=== PATIENT | male | born 1955 | race Caucasian/White ===

== ENCOUNTER 2023-11-21 14:03 | Inpatient (IN) | payer MEDICARE, OTHER, SELFPAY ==
[2023-11-21] VITALS (12 sets, daily range): BP systolic 84–122; BP diastolic 31–64; PULSE 108–127; RESP 11–30; TEMP 36.3–37.2; O2SAT 95–99; BMI 29.0; BMI 29.1
--- NOTE | 2023-11-21 14:14 | ECG_ITS ---
Test Reason : HYPERGLYCEMIA Blood Pressure : / mmHG Vent. Rate : 118 BPM Atrial Rate : 118 BPM P-R Int : 168 ms QRS Dur : 088 ms QT Int : 338 ms P-R-T Axes : 070 060 032 degrees QTc Int : 473 ms Sinus tachycardia Possible Left atrial enlargement Borderline ECG No previous ECGs available Referred By: Archie Heck Electronically Signed By:STANLEY KRAUS MD
--- NOTE | 2023-11-21 14:15 | ED_ITS ---
HPI - General Adult General Chief complaint: Nausea/Vomiting/Diarrhea Stated complaint: High blood sugar/Vomiting Time Seen by Provider: 11/21/23 16:09 Related Data Allergies Allergy/AdvReac Type Severity Reaction Status Date / Time No Known Allergies Allergy Verified 11/21/23 14:13 [facility] Social History Social History Household Members: Spouse Housing: House Do you presently have visiting nurse or other home services: No Patient Tobacco Use Status: Current someday Tobacco user Tobacco use type: Cigar Smoked in Last 30 Days: Yes e-Cigarette/Vaping Use: Never Used Patient Interested in Nicotine Replacement: No Patient Given Instructions on How to Stop Smoking: No Second Hand Smoke Exposure: No Use of substances other than those prescribed or required for medical reasons: No Currently Displaying Signs/Symptoms of Drug Intoxication Withdrawal: No Have you been hit, kicked, punched, or otherwise hurt by someone within the past year? If so, by whom?: No Do you feel safe in your current relationship?: Yes Is there a partner from a previous relationship who is making you feel unsafe now?: No Are you made to feel afraid or neglected: No [facility] Practices: [employer] Advance Directives: No Advance Directives Information Provided: No Do you have thoughts of harming others: None Do you have a plan to hurt others: No Plan Recently lost weight without trying: No Nutrition Risks: No Nutritional Risk Poor oral hygiene: No Physical Exam ED Vital Signs: Vital Signs - 24 hr 11/21/23 14:11 11/21/23 15:50 11/21/23 15:57 Temperature 98 F 97.9 F Pulse Rate 120 H 116 H 113 H Respiratory Rate 19 28 H 26 H Blood Pressure 98/50 L 84/48 L 94/53 L Pulse Oximetry 98 Oxygen Delivery Method Room Air 11/21/23 16:20 11/21/23 16:41 11/21/23 17:09 Temperature 97.7 F Pulse Rate 112 H 118 H Respiratory Rate 30 H 22 H Blood Pressure 98/31 L 108/37 L Pulse Oximetry 99 99 Oxygen Delivery Method Room Air Room Air 11/21/23 17:32 11/21/23 18:00 Temperature Pulse Rate 127 H 122 H Respiratory Rate 24 H 18 Blood Pressure 122/64 108/61 Pulse Oximetry 99 97 Oxygen Delivery Method Room Air Room Air BMI result Body Mass Index 29.0 Course Course Course Narrative: RME: 68 yold male preesnts to the ED for hyperglycemia and vomiting since last night. Patient states also some abdominal pain. Patient states no fever or chills. Patient has insulin pump with constant measurement of high medial gluteal aches over 500. Labs ordered. Nurse droop with a speak to charge nurse Jess to bring patient in for possible DKA Medications Administered Generic Name Dose Route Start Last Admin Trade Name Freq PRN Reason Stop Dose Admin Heparin Sodium (Porcine) 5,000 unit 11/21/23 20:00 11/21/23 20:08 Heparin Sodium,Porcine 5,000 Unit/Ml Vial SUBCUT 5,000 unit Q8H PASCUAL Administration Insulin Human Regular 100 unit in 100 mls @ 6 mls/hr 11/21/23 16:15 11/21/23 22:03 Myxredlin IVCONT 5 unit/hr .[id number] PASCUAL 5 mls/hr Titration Protocol 6 UNIT/HR Sodium Chloride 1,000 mls @ 150 mls/hr 11/21/23 20:15 11/21/23 21:03 Sodium Chloride 0.45 % IVCONT 150 mls/hr .[id number] PASCUAL Administration Discontinued Medications Generic Name Dose Route Start Last Admin Trade Name Freq PRN Reason Stop Dose Admin Sodium Chloride 1,000 mls @ 999 mls/hr 11/21/23 14:16 11/21/23 17:09 Ns IV 11/21/23 15:16 Infused .Q1H1M STA Infusion Sodium Chloride 1,000 mls @ 999 mls/hr 11/21/23 14:16 11/21/23 17:09 Ns IV 11/21/23 15:16 Infused .Q1H1M STA Infusion Sodium Chloride 1,000 mls @ 999 mls/hr 11/21/23 14:16 11/21/23 17:09 Ns IV 11/21/23 15:16 Infused .Q1H1M STA Infusion Ceftriaxone Sodium 1 gm/ 50 mls @ 100 mls/hr 11/21/23 16:53 11/21/23 17:46 Sodium Chloride IV 11/21/23 17:22 Infused ONCE ONE Infusion Lactated Ringer's 500 mls @ 999 mls/hr 11/21/23 18:36 11/21/23 19:23 Lr IVCONT 11/21/23 19:06 Infused .Q31M STA Infusion Insulin Human Regular 10 unit 11/21/23 16:03 11/21/23 16:18 Insulin Regular, Human 100 Unit/Ml 3 Ml Vial IVPUSH 11/21/23 16:04 Not Given ONCE ONE Insulin Human Regular 10 unit 11/21/23 16:11 11/21/23 16:28 Insulin Regular, Human 100 Unit/Ml 3 Ml Vial IVPUSH 11/21/23 16:12 10 unit ONCE ONE Administration Ondansetron HCl 4 mg 11/21/23 17:33 11/21/23 17:39 Ondansetron Hcl 4 Mg/2 Ml Vial IVPUSH 11/21/23 17:34 4 mg ONCE ONE Administration Medical Decision Making Lab Data 11/21/23 21:47 11/21/23 21:47 Labs: Lab Results 11/21/23 11/21/23 11/21/23 Range/Units 14:48 15:32 15:42 WBC 25.8 H (4.8-10.8) X10*3/uL RBC 5.10 (4.60-5.80) X10*6/uL Hgb 16.4 (14.0-18.0) g/dl Hct 51.0 (42.0-52.0) % MCV 100.0 H (80.0-98.0) fL MCH 32.2 (27.0-33.0) pg MCHC 32.2 (31.0-36.0) g/dl RDW 12.9 (11.0-16.0) % Plt Count 326 (160-400) X10*3/uL MPV 10.6 (9.4-12.4) fL Immature Gran % (Auto) 1.3 H (0.0-0.4) % Neut % (Auto) 85.6 H (45-73) % Lymph % (Auto) 6.3 L (20-40) % [place] % (Auto) 6.5 (2-11) % Eos % (Auto) 0.0 (0-4) % Baso % (Auto) 0.3 (0-2) % Lymph # (Auto) 1.6 (1.2-4.9) X10*3/uL [place] # (Auto) 1.7 H (0.1-1.2) X10*3/uL Eos # (Auto) 0.0 (0.0-0.4) X10*3/uL Baso # (Auto) 0.1 (0.0-0.2) X10*3/uL Abs Immat Gran (auto) 0.33 H (0.00-0.03) X10*3/uL Absolute Neuts (auto) 22.1 H (2.0-8.3) x10*3/uL Absolute Nucleated RBC 0.000 (0.0-0.012) X10*3/uL Nucleated RBC % (auto) 0.0 (0.0-0.2) /100WBC Smear Tech's Comments VERIFIED VBG pH (7.32-7.43) VBG pCO2 mmHg VBG pO2 mmHg VBG HCO3 (22-26) mmol/L VBG O2 Saturation % VBG Base Excess mmol/L Sodium 138 (135-145) mmol/L Potassium 5.8 H (3.3-5.1) mmol/L Chloride 95 L (96-108) mmol/L Carbon Dioxide 6 L* (22-29) mmol/L Anion Gap 43 H (12-20) BUN 39 H (9-16) mg/dL Creatinine 2.64 H (0.5-1.4) mg/dL Estim Creat Clear Calc 28.5 Estimated GFR 24 POC Glucose > 600 H* (60-115) mg/dL Random Glucose 801 H* (60-115) mg/dL Lactic Acid 10.4 H* (0.5-2.0) mmol/L Lactic Acid F/U @ 2Hr (0.5-2.0) mmol/L Calcium 10.3 H (8.4-10.2) mg/dL Total Bilirubin 0.5 (0.0-1.0) mg/dL AST 52 H (5-37) U/L ALT 81 H (0-40) U/L Alkaline Phosphatase 93 (39-117) U/L Troponin I High Sens 20.7 (<3.5-35.0) ng/L Total Protein 8.3 H (6.5-8.0) g/dL Albumin 4.7 (3.5-5.0) g/dL Beta-Hydroxybutyrate 10.03 H (0.02-0.27) mmol/L Urine Color Urine Appearance Urine pH (5.0-9.0) Ur Specific [place] (1.005-1.025) Urine Protein (Neg-Trace) mg/dL Urine Glucose (UA) (Negative) mg/dL Urine Ketones (Negative) mg/dL Urine Blood (Negative) Urine Nitrite (Negative) Ur Leukocyte Esterase (Negative) Urine RBC (0-2) /HPF Urine WBC (0-5) /HPF Ur Squamous Epith Cells (0-2) /HPF Urine Bacteria (None Seen) Hyaline Casts (0-2) /LPF Influenza Type A (PCR) NEGATIVE (Negative) Influenza Type B (PCR) NEGATIVE (Negative) RSV RNA Qual (PCR) NEGATIVE (Negative) SARS-CoV-2 RNA (RT-PCR) NEGATIVE (Negative) 11/21/23 11/21/23 11/21/23 Range/Units 16:28 17:05 17:19 WBC (4.8-10.8) X10*3/uL RBC (4.60-5.80) X10*6/uL Hgb (14.0-18.0) g/dl Hct (42.0-52.0) % MCV (80.0-98.0) fL MCH (27.0-33.0) pg MCHC (31.0-36.0) g/dl RDW (11.0-16.0) % Plt Count (160-400) X10*3/uL MPV (9.4-12.4) fL Immature Gran % (Auto) (0.0-0.4) % Neut % (Auto) (45-73) % Lymph % (Auto) (20-40) % [place] % (Auto) (2-11) % Eos % (Auto) (0-4) % Baso % (Auto) (0-2) % Lymph # (Auto) (1.2-4.9) X10*3/uL [place] # (Auto) (0.1-1.2) X10*3/uL Eos # (Auto) (0.0-0.4) X10*3/uL Baso # (Auto) (0.0-0.2) X10*3/uL Abs Immat Gran (auto) (0.00-0.03) X10*3/uL Absolute Neuts (auto) (2.0-8.3) x10*3/uL Absolute Nucleated RBC (0.0-0.012) X10*3/uL Nucleated RBC % (auto) (0.0-0.2) /100WBC Smear Tech's Comments VBG pH 7.01 L* (7.32-7.43) VBG pCO2 27 mmHg VBG pO2 53 mmHg VBG HCO3 7 L (22-26) mmol/L VBG O2 Saturation 70.0 % VBG Base Excess -22.6 mmol/L Sodium (135-145) mmol/L Potassium (3.3-5.1) mmol/L Chloride (96-108) mmol/L Carbon Dioxide (22-29) mmol/L Anion Gap (12-20) BUN (9-16) mg/dL Creatinine (0.5-1.4) mg/dL Estim Creat Clear Calc Estimated GFR POC Glucose > 600 H* 270 H (60-115) mg/dL Random Glucose (60-115) mg/dL Lactic Acid (0.5-2.0) mmol/L Lactic Acid F/U @ 2Hr (0.5-2.0) mmol/L Calcium (8.4-10.2) mg/dL Total Bilirubin (0.0-1.0) mg/dL AST (5-37) U/L ALT (0-40) U/L Alkaline Phosphatase (39-117) U/L Troponin I High Sens (<3.5-35.0) ng/L Total Protein (6.5-8.0) g/dL Albumin (3.5-5.0) g/dL Beta-Hydroxybutyrate (0.02-0.27) mmol/L Urine Color Yellow Urine Appearance Clear Urine pH 5.0 (5.0-9.0) Ur Specific [place] 1.025 (1.005-1.025) Urine Protein Trace (Neg-Trace) mg/dL Urine Glucose (UA) >=1000 H (Negative) mg/dL Urine Ketones 40 (Negative) mg/dL Urine Blood Negative (Negative) Urine Nitrite Negative (Negative) Ur Leukocyte Esterase Negative (Negative) Urine RBC 0-2 (0-2) /HPF Urine WBC 0-5 (0-5) /HPF Ur Squamous Epith Cells 0-2 (0-2) /HPF Urine Bacteria None Seen (None Seen) Hyaline Casts 3-5 (0-2) /LPF Influenza Type A (PCR) (Negative) Influenza Type B (PCR) (Negative) RSV RNA Qual (PCR) (Negative) SARS-CoV-2 RNA (RT-PCR) (Negative) 11/21/23 11/21/23 11/21/23 Range/Units 18:08 18:11 18:13 WBC (4.8-10.8) X10*3/uL RBC (4.60-5.80) X10*6/uL Hgb (14.0-18.0) g/dl Hct (42.0-52.0) % MCV (80.0-98.0) fL MCH (27.0-33.0) pg MCHC (31.0-36.0) g/dl RDW (11.0-16.0) % Plt Count (160-400) X10*3/uL MPV (9.4-12.4) fL Immature Gran % (Auto) (0.0-0.4) % Neut % (Auto) (45-73) % Lymph % (Auto) (20-40) % [place] % (Auto) (2-11) % Eos % (Auto) (0-4) % Baso % (Auto) (0-2) % Lymph # (Auto) (1.2-4.9) X10*3/uL [place] # (Auto) (0.1-1.2) X10*3/uL Eos # (Auto) (0.0-0.4) X10*3/uL Baso # (Auto) (0.0-0.2) X10*3/uL Abs Immat Gran (auto) (0.00-0.03) X10*3/uL Absolute Neuts (auto) (2.0-8.3) x10*3/uL Absolute Nucleated RBC (0.0-0.012) X10*3/uL Nucleated RBC % (auto) (0.0-0.2) /100WBC Smear Tech's Comments VBG pH (7.32-7.43) VBG pCO2 mmHg VBG pO2 mmHg VBG HCO3 (22-26) mmol/L VBG O2 Saturation % VBG Base Excess mmol/L Sodium 145 (135-145) mmol/L Potassium 5.1 (3.3-5.1) mmol/L Chloride 107 (96-108) mmol/L Carbon Dioxide 11 L (22-29) mmol/L Anion Gap 32 H (12-20) BUN 38 H (9-16) mg/dL Creatinine 2.37 H (0.5-1.4) mg/dL Estim Creat Clear Calc 31.7 Estimated GFR 28 POC Glucose 522 H* 550 H* (60-115) mg/dL Random Glucose 621 H* (60-115) mg/dL Lactic Acid (0.5-2.0) mmol/L Lactic Acid F/U @ 2Hr 5.7 H* (0.5-2.0) mmol/L Calcium 8.7 D (8.4-10.2) mg/dL Total Bilirubin (0.0-1.0) mg/dL AST (5-37) U/L ALT (0-40) U/L Alkaline Phosphatase (39-117) U/L Troponin I High Sens (<3.5-35.0) ng/L Total Protein (6.5-8.0) g/dL Albumin (3.5-5.0) g/dL Beta-Hydroxybutyrate (0.02-0.27) mmol/L Urine Color Urine Appearance Urine pH (5.0-9.0) Ur Specific [place] (1.005-1.025) Urine Protein (Neg-Trace) mg/dL Urine Glucose (UA) (Negative) mg/dL Urine Ketones (Negative) mg/dL Urine Blood (Negative) Urine Nitrite (Negative) Ur Leukocyte Esterase (Negative) Urine RBC (0-2) /HPF Urine WBC (0-5) /HPF Ur Squamous Epith Cells (0-2) /HPF Urine Bacteria (None Seen) Hyaline Casts (0-2) /LPF Influenza Type A (PCR) (Negative) Influenza Type B (PCR) (Negative) RSV RNA Qual (PCR) (Negative) SARS-CoV-2 RNA (RT-PCR) (Negative) 11/21/23 11/21/23 Range/Units 18:20 19:07 WBC (4.8-10.8) X10*3/uL RBC (4.60-5.80) X10*6/uL Hgb (14.0-18.0) g/dl Hct (42.0-52.0) % MCV (80.0-98.0) fL MCH (27.0-33.0) pg MCHC (31.0-36.0) g/dl RDW (11.0-16.0) % Plt Count (160-400) X10*3/uL MPV (9.4-12.4) fL Immature Gran % (Auto) (0.0-0.4) % Neut % (Auto) (45-73) % Lymph % (Auto) (20-40) % [place] % (Auto) (2-11) % Eos % (Auto) (0-4) % Baso % (Auto) (0-2) % Lymph # (Auto) (1.2-4.9) X10*3/uL [place] # (Auto) (0.1-1.2) X10*3/uL Eos # (Auto) (0.0-0.4) X10*3/uL Baso # (Auto) (0.0-0.2) X10*3/uL Abs Immat Gran (auto) (0.00-0.03) X10*3/uL Absolute Neuts (auto) (2.0-8.3) x10*3/uL Absolute Nucleated RBC (0.0-0.012) X10*3/uL Nucleated RBC % (auto) (0.0-0.2) /100WBC Smear Tech's Comments VBG pH 7.13 L* (7.32-7.43) VBG pCO2 25 mmHg VBG pO2 62 mmHg VBG HCO3 8 L (22-26) mmol/L VBG O2 Saturation 86.0 % VBG Base Excess -18.7 mmol/L Sodium (135-145) mmol/L Potassium (3.3-5.1) mmol/L Chloride (96-108) mmol/L Carbon Dioxide (22-29) mmol/L Anion Gap (12-20) BUN (9-16) mg/dL Creatinine (0.5-1.4) mg/dL Estim Creat Clear Calc Estimated GFR POC Glucose 484 H* (60-115) mg/dL Random Glucose (60-115) mg/dL Lactic Acid (0.5-2.0) mmol/L Lactic Acid F/U @ 2Hr (0.5-2.0) mmol/L Calcium (8.4-10.2) mg/dL Total Bilirubin (0.0-1.0) mg/dL AST (5-37) U/L ALT (0-40) U/L Alkaline Phosphatase (39-117) U/L Troponin I High Sens (<3.5-35.0) ng/L Total Protein (6.5-8.0) g/dL Albumin (3.5-5.0) g/dL Beta-Hydroxybutyrate (0.02-0.27) mmol/L Urine Color Urine Appearance Urine pH (5.0-9.0) Ur Specific [place] (1.005-1.025) Urine Protein (Neg-Trace) mg/dL Urine Glucose (UA) (Negative) mg/dL Urine Ketones (Negative) mg/dL Urine Blood (Negative) Urine Nitrite (Negative) Ur Leukocyte Esterase (Negative) Urine RBC (0-2) /HPF Urine WBC (0-5) /HPF Ur Squamous Epith Cells (0-2) /HPF Urine Bacteria (None Seen) Hyaline Casts (0-2) /LPF Influenza Type A (PCR) (Negative) Influenza Type B (PCR) (Negative) RSV RNA Qual (PCR) (Negative) SARS-CoV-2 RNA (RT-PCR) (Negative) Discharge Plan Discharge Clinical Impression: DKA (diabetic ketoacidosis) Patient Disposition: Admitted As Inpatient Interventions: Admission Worksheet (ED) Last Done: 11/21/23 21:00 Discharge Date/Time: 11/21/23 21:13
[2023-11-21 14:55] LABS: Basophils Absolute Auto 0.1 X10*3/uL (0.0-0.2); Basophils Percent Auto 0.3 % (0-2); Hemoglobin 16.4 g/dl (14.0-18.0); Imm Gran Abs Auto 0.33 X10*3/uL (0.00-0.03); Imm Gran Pct Auto 1.3 % (0.0-0.4); Lymphocytes Absolute Auto 1.6 X10*3/uL (1.2-4.9); Lymphocytes Percent Auto 6.3 % (20-40); MANUAL DIFF FLAG SCAN; Mean Corpuscular HGB Conc 32.2 g/dl (31.0-36.0); Mean Corpuscular Hemoglobin 32.2 pg (27.0-33.0); Mean Platelet Volume 10.6 fL (9.4-12.4); Monocytes Absolute Auto 1.7 X10*3/uL (0.1-1.2); Monocytes Percent Auto 6.5 % (2-11); Neutrophils Absolute Auto 22.1 x10*3/uL (2.0-8.3); Neutrophils Percent Auto 85.6 % (45-73); Platelet Count 326 X10*3/uL (160-400); Red Cell Distribution Width 12.9 % (11.0-16.0); SCAN SMEAR FLAG 1; White Blood Count 25.8 X10*3/uL (4.8-10.8)
[2023-11-21 15:16] LABS: SLIDE REVIEW VERIFIED
[2023-11-21 15:23] LABS: Troponin-I High Sensitivity 20.7 ng/L (<3.5-35.0)
[2023-11-21 15:36] LABS: Influenza A PCR NEGATIVE (Negative); Influenza B PCR NEGATIVE (Negative); Resp Syncy Virus RNA Qual PCR NEGATIVE (Negative); SARS COV2 PCR INHOUSE NEGATIVE (Negative)
[2023-11-21 15:39] LABS: Glucose, Whole Blood > 600 mg/dL (60-115)
--- NOTE | 2023-11-21 15:40 | PC.NURSE ---
md mendes notified upon pt entering room and taking VS that py hypotensive/tachycardic with elevated wbc. rn had legal secretary receptionist call sepsis alert. no abx being ordered at this time. 2 set BCs drawn
[2023-11-21] MEDS: 0.9 % Sodium Chloride 1,000 ML 999 ML IV ×3 (15:50→15:56)
--- NOTE | 2023-11-21 15:50 | PC.NURSE ---
md mendes notified poc taken x2 as both times read high. iv fluids hung. no new orders at this time
[2023-11-21 16:02] LABS: Alanine Aminotransferase 81 U/L (0-40); Albumin Level 4.7 g/dL (3.5-5.0); Alkaline Phosphatase 93 U/L (39-117); Anion Gap 43 (12-20); Aspartate Amino Transferase 52 U/L (5-37); Bilirubin Total 0.5 mg/dL (0.0-1.0); Blood Urea Nitrogen 39 mg/dL (9-16); Calcium 10.3 mg/dL (8.4-10.2); Carbon Dioxide 6 mmol/L (22-29); Chloride 95 mmol/L (96-108); Creatinine Clr Calc Pharmacy 28.5; Estimated Glomerular Filt Rate 24; Glucose Random 801 mg/dL (60-115); Potassium 5.8 mmol/L (3.3-5.1); Sodium 138 mmol/L (135-145); Total Protein 8.3 g/dL (6.5-8.0)
--- NOTE | 2023-11-21 16:07 | PC.NURSE ---
called RT to notify pt need ABG. christianne valera at bedside ordering not to give iv insulin at this time due to receiving insulin via internal insulin pump.
--- NOTE | 2023-11-21 16:09 | ED_ITS ---
HPI - General Adult General Chief complaint: Nausea/Vomiting/Diarrhea Stated complaint: High blood sugar/Vomiting Time Seen by Provider: 11/21/23 16:09 Source: patient Mode of arrival: ambulatory Limitations: no limitations History of Present Illness HPI narrative: Patient is type 1 diabetic on insulin pump for last 3 years history of DKA before insulin pump started and been doing well since yesterday evening patient started vomiting blood sugar kept increasing from 200 today in a.m. patient changed the insulin pump site thinking maybe because of insulin pump blood sugar is getting higher patient give boluses of 45 units earlier today using his insulin pump but blood sugar continued to be high started vomiting with diffuse abdominal pain vomited multiple times on arrival patient's blood sugar was more than 600 no fever no chills no cough no chest pain complaining of pain all over and right flank Related Data Allergies Allergy/AdvReac Type Severity Reaction Status Date / Time No Known Allergies Allergy Verified 11/21/23 14:13 Review of Systems 2 Review of Systems: Yes all other systems are reviewed and are negative [facility] Past Medical History Medical History Type 1 diabetes Social History Social History Household Members: Spouse Housing: House Do you presently have visiting nurse or other home services: No Patient Tobacco Use Status: Current someday Tobacco user Tobacco use type: Cigar Smoked in Last 30 Days: Yes e-Cigarette/Vaping Use: Never Used Patient Interested in Nicotine Replacement: No Patient Given Instructions on How to Stop Smoking: No Second Hand Smoke Exposure: No Use of substances other than those prescribed or required for medical reasons: No Currently Displaying Signs/Symptoms of Drug Intoxication Withdrawal: No Have you been hit, kicked, punched, or otherwise hurt by someone within the past year? If so, by whom?: No Do you feel safe in your current relationship?: Yes Is there a partner from a previous relationship who is making you feel unsafe now?: No Are you made to feel afraid or neglected: No [employer] Healthcare Practices: Syn[employer] Advance Directives: No Advance Directives Information Provided: No Do you have thoughts of harming others: None Do you have a plan to hurt others: No Plan Recently lost weight without trying: No Nutrition Risks: No Nutritional Risk Poor oral hygiene: No Physical Exam ED Vital Signs: Vital Signs - 24 hr 11/21/23 14:11 11/21/23 15:50 11/21/23 15:57 Temperature 98 F 97.9 F Pulse Rate 120 H 116 H 113 H Respiratory Rate 19 28 H 26 H Blood Pressure 98/50 L 84/48 L 94/53 L Pulse Oximetry 98 Oxygen Delivery Method Room Air 11/21/23 16:20 11/21/23 16:41 11/21/23 17:09 Temperature 97.7 F Pulse Rate 112 H 118 H Respiratory Rate 30 H 22 H Blood Pressure 98/31 L 108/37 L Pulse Oximetry 99 99 Oxygen Delivery Method Room Air Room Air 11/21/23 17:32 11/21/23 18:00 Temperature Pulse Rate 127 H 122 H Respiratory Rate 24 H 18 Blood Pressure 122/64 108/61 Pulse Oximetry 99 97 Oxygen Delivery Method Room Air Room Air BMI result Body Mass Index 29.0 Appearance: Alert. Oriented X3. No acute distress. Eyes: PERRLA, No Nystagmus ENT: Pharynx normal. Oral Mucosa very dry Neck: Normal inspection. Neck supple. CVS: Normal heart rate and rhythm. Pulses normal. Respiratory: No respiratory distress. Equal air entry bilateral, no wheezing/rales/rhonchi Abdomen: Soft and nontender. Bowel sounds are present, no mass palpable, no CVA tenderness Skin: Skin warm and dry. Normal skin color. Normal skin turgor. Extremities: No lower extremity edema. No calf tenderness Neuro: Oriented X 3. No motor deficit. No sensory deficit.No cerebellar signs , cranial nerves II-XII intact Medications Administered Generic Name Dose Route Start Last Admin Trade Name Donatoq PRN Reason Stop Dose Admin Heparin Sodium (Porcine) 5,000 unit 11/21/23 20:00 11/21/23 20:08 Heparin Sodium,Porcine 5,000 Unit/Ml Vial SUBCUT 5,000 unit Q8H PASCUAL Administration Insulin Human Regular 100 unit in 100 mls @ 6 mls/hr 11/21/23 16:15 11/21/23 22:03 Myxredlin IVCONT 5 unit/hr .[id number] PASCUAL 5 mls/hr Titration Protocol 6 UNIT/HR Dextrose/Lactated Ringer's 1,000 mls @ 150 mls/hr 11/22/23 01:30 11/22/23 01:35 D5lr IVCONT 150 mls/hr .Q6H40M PASCUAL Administration Discontinued Medications Generic Name Dose Route Start Last Admin Trade Name Donatoq PRN Reason Stop Dose Admin Sodium Chloride 1,000 mls @ 999 mls/hr 11/21/23 14:16 11/21/23 17:09 Ns IV 11/21/23 15:16 Infused .Q1H1M STA Infusion Sodium Chloride 1,000 mls @ 999 mls/hr 11/21/23 14:16 11/21/23 17:09 Ns IV 11/21/23 15:16 Infused .Q1H1M STA Infusion Sodium Chloride 1,000 mls @ 999 mls/hr 11/21/23 14:16 11/21/23 17:09 Ns IV 11/21/23 15:16 Infused .Q1H1M STA Infusion Ceftriaxone Sodium 1 gm/ 50 mls @ 100 mls/hr 11/21/23 16:53 11/21/23 17:46 Sodium Chloride IV 11/21/23 17:22 Infused ONCE ONE Infusion Lactated Ringer's 500 mls @ 999 mls/hr 11/21/23 18:36 11/21/23 19:23 Lr IVCONT 11/21/23 19:06 Infused .Q31M STA Infusion Sodium Chloride 1,000 mls @ 150 mls/hr 11/21/23 20:15 11/21/23 23:15 Sodium Chloride 0.45 % IVCONT Infused .Q6H40M PASCUAL Infusion Lactated Ringer's 1,000 mls @ 150 mls/hr 11/21/23 23:15 11/22/23 01:15 Lr IVCONT Infused .Q6H40M PASCUAL Infusion Insulin Human Regular 10 unit 11/21/23 16:03 11/21/23 16:18 Insulin Regular, Human 100 Unit/Ml 3 Ml Vial IVPUSH 11/21/23 16:04 Not Given ONCE ONE Insulin Human Regular 10 unit 11/21/23 16:11 11/21/23 16:28 Insulin Regular, Human 100 Unit/Ml 3 Ml Vial IVPUSH 11/21/23 16:12 10 unit ONCE ONE Administration Ondansetron HCl 4 mg 11/21/23 17:33 11/21/23 17:39 Ondansetron Hcl 4 Mg/2 Ml Vial IVPUSH 11/21/23 17:34 4 mg ONCE ONE Administration Medical Decision Making Medical Decision Making [facility] Narrative: Patient is type 1 diabetes with DKA with metabolic acidosis. Has leukocytosis secondary to leukemoid reaction no source of infection also lactic acid doses is part of diabetes ketoacidosis patient was given IV fluids started on insulin drip blood sugar improved and anion gap is closing foot still elevated on arrival patient bicarb level was 6 at 21:47 increased to 16 patient been drinking p.o. fluids in the ER anion gap on arrival was 43 after IV fluids decreased to 32 and at time of transfer to ICU was 22. Case discussed with Dr. Snyder human resources operations director will take the patient to ICU Patient not in bacterial sepsis elevated WBC count is secondary to ketoacidosis and elevated lactic acid level is also from hyperglycemia and ketoacidosis although blood cultures were done prophylactic Rocephin was given Differential Diagnosis Differential Diagnoses: The differential diagnosis associated with the presentation includes Diabetic ketoacidosis/dehydration Consult Healthcare Provider Management of the patient was discussed with: Horticulture/[employer]icult[employer] Teacher [employer] Vice President Lab Data [facility] Lab Attestation statement: I reviewed the patient's lab results. 11/21/23 21:47 11/21/23 21:47 Labs: Lab Results 11/21/23 11/21/23 11/21/23 Range/Units 14:48 15:32 15:42 WBC 25.8 H (4.8-10.8) X10*3/uL RBC 5.10 (4.60-5.80) X10*6/uL Hgb 16.4 (14.0-18.0) g/dl Hct 51.0 (42.0-52.0) % MCV 100.0 H (80.0-98.0) fL MCH 32.2 (27.0-33.0) pg MCHC 32.2 (31.0-36.0) g/dl RDW 12.9 (11.0-16.0) % Plt Count 326 (160-400) X10*3/uL MPV 10.6 (9.4-12.4) fL Immature Gran % (Auto) 1.3 H (0.0-0.4) % Neut % (Auto) 85.6 H (45-73) % Lymph % (Auto) 6.3 L (20-40) % Crosby % (Auto) 6.5 (2-11) % Eos % (Auto) 0.0 (0-4) % Baso % (Auto) 0.3 (0-2) % Lymph # (Auto) 1.6 (1.2-4.9) X10*3/uL Crosby # (Auto) 1.7 H (0.1-1.2) X10*3/uL Eos # (Auto) 0.0 (0.0-0.4) X10*3/uL Baso # (Auto) 0.1 (0.0-0.2) X10*3/uL Abs Immat Gran (auto) 0.33 H (0.00-0.03) X10*3/uL Absolute Neuts (auto) 22.1 H (2.0-8.3) x10*3/uL Absolute Nucleated RBC 0.000 (0.0-0.012) X10*3/uL Nucleated RBC % (auto) 0.0 (0.0-0.2) /100WBC Smear Tech's Comments VERIFIED VBG pH (7.32-7.43) VBG pCO2 mmHg VBG pO2 mmHg VBG HCO3 (22-26) mmol/L VBG O2 Saturation % VBG Base Excess mmol/L Sodium 138 (135-145) mmol/L Potassium 5.8 H (3.3-5.1) mmol/L Chloride 95 L (96-108) mmol/L Carbon Dioxide 6 L* (22-29) mmol/L Anion Gap 43 H (12-20) BUN 39 H (9-16) mg/dL Creatinine 2.64 H (0.5-1.4) mg/dL Estim Creat Clear Calc 28.5 Estimated GFR 24 POC Glucose > 600 H* (60-115) mg/dL Random Glucose 801 H* (60-115) mg/dL Lactic Acid 10.4 H* (0.5-2.0) mmol/L Lactic Acid F/U @ 2Hr (0.5-2.0) mmol/L Calcium 10.3 H (8.4-10.2) mg/dL Total Bilirubin 0.5 (0.0-1.0) mg/dL AST 52 H (5-37) U/L ALT 81 H (0-40) U/L Alkaline Phosphatase 93 (39-117) U/L Troponin I High Sens 20.7 (<3.5-35.0) ng/L Total Protein 8.3 H (6.5-8.0) g/dL Albumin 4.7 (3.5-5.0) g/dL Beta-Hydroxybutyrate 10.03 H (0.02-0.27) mmol/L Urine Color Urine Appearance Urine pH (5.0-9.0) Ur Specific [place] (1.005-1.025) Urine Protein (Neg-Trace) mg/dL Urine Glucose (UA) (Negative) mg/dL Urine Ketones (Negative) mg/dL Urine Blood (Negative) Urine Nitrite (Negative) Ur Leukocyte Esterase (Negative) Urine RBC (0-2) /HPF Urine WBC (0-5) /HPF Ur Squamous Epith Cells (0-2) /HPF Urine Bacteria (None Seen) Hyaline Casts (0-2) /LPF Influenza Type A (PCR) NEGATIVE (Negative) Influenza Type B (PCR) NEGATIVE (Negative) RSV RNA Qual (PCR) NEGATIVE (Negative) SARS-CoV-2 RNA (RT-PCR) NEGATIVE (Negative) 11/21/23 11/21/23 11/21/23 Range/Units 16:28 17:05 17:19 WBC (4.8-10.8) X10*3/uL RBC (4.60-5.80) X10*6/uL Hgb (14.0-18.0) g/dl Hct (42.0-52.0) % MCV (80.0-98.0) fL MCH (27.0-33.0) pg MCHC (31.0-36.0) g/dl RDW (11.0-16.0) % Plt Count (160-400) X10*3/uL MPV (9.4-12.4) fL Immature Gran % (Auto) (0.0-0.4) % Neut % (Auto) (45-73) % Lymph % (Auto) (20-40) % Crosby % (Auto) (2-11) % Eos % (Auto) (0-4) % Baso % (Auto) (0-2) % Lymph # (Auto) (1.2-4.9) X10*3/uL Crosby # (Auto) (0.1-1.2) X10*3/uL Eos # (Auto) (0.0-0.4) X10*3/uL Baso # (Auto) (0.0-0.2) X10*3/uL Abs Immat Gran (auto) (0.00-0.03) X10*3/uL Absolute Neuts (auto) (2.0-8.3) x10*3/uL Absolute Nucleated RBC (0.0-0.012) X10*3/uL Nucleated RBC % (auto) (0.0-0.2) /100WBC Smear Tech's Comments VBG pH 7.01 L* (7.32-7.43) VBG pCO2 27 mmHg VBG pO2 53 mmHg VBG HCO3 7 L (22-26) mmol/L VBG O2 Saturation 70.0 % VBG Base Excess -22.6 mmol/L Sodium (135-145) mmol/L Potassium (3.3-5.1) mmol/L Chloride (96-108) mmol/L Carbon Dioxide (22-29) mmol/L Anion Gap (12-20) BUN (9-16) mg/dL Creatinine (0.5-1.4) mg/dL Estim Creat Clear Calc Estimated GFR POC Glucose > 600 H* 270 H (60-115) mg/dL Random Glucose (60-115) mg/dL Lactic Acid (0.5-2.0) mmol/L Lactic Acid F/U @ 2Hr (0.5-2.0) mmol/L Calcium (8.4-10.2) mg/dL Total Bilirubin (0.0-1.0) mg/dL AST (5-37) U/L ALT (0-40) U/L Alkaline Phosphatase (39-117) U/L Troponin I High Sens (<3.5-35.0) ng/L Total Protein (6.5-8.0) g/dL Albumin (3.5-5.0) g/dL Beta-Hydroxybutyrate (0.02-0.27) mmol/L Urine Color Yellow Urine Appearance Clear Urine pH 5.0 (5.0-9.0) Ur Specific [place] 1.025 (1.005-1.025) Urine Protein Trace (Neg-Trace) mg/dL Urine Glucose (UA) >=1000 H (Negative) mg/dL Urine Ketones 40 (Negative) mg/dL Urine Blood Negative (Negative) Urine Nitrite Negative (Negative) Ur Leukocyte Esterase Negative (Negative) Urine RBC 0-2 (0-2) /HPF Urine WBC 0-5 (0-5) /HPF Ur Squamous Epith Cells 0-2 (0-2) /HPF Urine Bacteria None Seen (None Seen) Hyaline Casts 3-5 (0-2) /LPF Influenza Type A (PCR) (Negative) Influenza Type B (PCR) (Negative) RSV RNA Qual (PCR) (Negative) SARS-CoV-2 RNA (RT-PCR) (Negative) 11/21/23 11/21/23 11/21/23 Range/Units 18:08 18:11 18:13 WBC (4.8-10.8) X10*3/uL RBC (4.60-5.80) X10*6/uL Hgb (14.0-18.0) g/dl Hct (42.0-52.0) % MCV (80.0-98.0) fL MCH (27.0-33.0) pg MCHC (31.0-36.0) g/dl RDW (11.0-16.0) % Plt Count (160-400) X10*3/uL MPV (9.4-12.4) fL Immature Gran % (Auto) (0.0-0.4) % Neut % (Auto) (45-73) % Lymph % (Auto) (20-40) % Crosby % (Auto) (2-11) % Eos % (Auto) (0-4) % Baso % (Auto) (0-2) % Lymph # (Auto) (1.2-4.9) X10*3/uL Crosby # (Auto) (0.1-1.2) X10*3/uL Eos # (Auto) (0.0-0.4) X10*3/uL Baso # (Auto) (0.0-0.2) X10*3/uL Abs Immat Gran (auto) (0.00-0.03) X10*3/uL Absolute Neuts (auto) (2.0-8.3) x10*3/uL Absolute Nucleated RBC (0.0-0.012) X10*3/uL Nucleated RBC % (auto) (0.0-0.2) /100WBC Smear Tech's Comments VBG pH (7.32-7.43) VBG pCO2 mmHg VBG pO2 mmHg VBG HCO3 (22-26) mmol/L VBG O2 Saturation % VBG Base Excess mmol/L Sodium 145 (135-145) mmol/L Potassium 5.1 (3.3-5.1) mmol/L Chloride 107 (96-108) mmol/L Carbon Dioxide 11 L (22-29) mmol/L Anion Gap 32 H (12-20) BUN 38 H (9-16) mg/dL Creatinine 2.37 H (0.5-1.4) mg/dL Estim Creat Clear Calc 31.7 Estimated GFR 28 POC Glucose 522 H* 550 H* (60-115) mg/dL Random Glucose 621 H* (60-115) mg/dL Lactic Acid (0.5-2.0) mmol/L Lactic Acid F/U @ 2Hr 5.7 H* (0.5-2.0) mmol/L Calcium 8.7 D (8.4-10.2) mg/dL Total Bilirubin (0.0-1.0) mg/dL AST (5-37) U/L ALT (0-40) U/L Alkaline Phosphatase (39-117) U/L Troponin I High Sens (<3.5-35.0) ng/L Total Protein (6.5-8.0) g/dL Albumin (3.5-5.0) g/dL Beta-Hydroxybutyrate (0.02-0.27) mmol/L Urine Color Urine Appearance Urine pH (5.0-9.0) Ur Specific [place] (1.005-1.025) Urine Protein (Neg-Trace) mg/dL Urine Glucose (UA) (Negative) mg/dL Urine Ketones (Negative) mg/dL Urine Blood (Negative) Urine Nitrite (Negative) Ur Leukocyte Esterase (Negative) Urine RBC (0-2) /HPF Urine WBC (0-5) /HPF Ur Squamous Epith Cells (0-2) /HPF Urine Bacteria (None Seen) Hyaline Casts (0-2) /LPF Influenza Type A (PCR) (Negative) Influenza Type B (PCR) (Negative) RSV RNA Qual (PCR) (Negative) SARS-CoV-2 RNA (RT-PCR) (Negative) 11/21/23 11/21/23 Range/Units 18:20 19:07 WBC (4.8-10.8) X10*3/uL RBC (4.60-5.80) X10*6/uL Hgb (14.0-18.0) g/dl Hct (42.0-52.0) % MCV (80.0-98.0) fL MCH (27.0-33.0) pg MCHC (31.0-36.0) g/dl RDW (11.0-16.0) % Plt Count (160-400) X10*3/uL MPV (9.4-12.4) fL Immature Gran % (Auto) (0.0-0.4) % Neut % (Auto) (45-73) % Lymph % (Auto) (20-40) % Crosby % (Auto) (2-11) % Eos % (Auto) (0-4) % Baso % (Auto) (0-2) % Lymph # (Auto) (1.2-4.9) X10*3/uL Crosby # (Auto) (0.1-1.2) X10*3/uL Eos # (Auto) (0.0-0.4) X10*3/uL Baso # (Auto) (0.0-0.2) X10*3/uL Abs Immat Gran (auto) (0.00-0.03) X10*3/uL Absolute Neuts (auto) (2.0-8.3) x10*3/uL Absolute Nucleated RBC (0.0-0.012) X10*3/uL Nucleated RBC % (auto) (0.0-0.2) /100WBC Smear Tech's Comments VBG pH 7.13 L* (7.32-7.43) VBG pCO2 25 mmHg VBG pO2 62 mmHg VBG HCO3 8 L (22-26) mmol/L VBG O2 Saturation 86.0 % VBG Base Excess -18.7 mmol/L Sodium (135-145) mmol/L Potassium (3.3-5.1) mmol/L Chloride (96-108) mmol/L Carbon Dioxide (22-29) mmol/L Anion Gap (12-20) BUN (9-16) mg/dL Creatinine (0.5-1.4) mg/dL Estim Creat Clear Calc Estimated GFR POC Glucose 484 H* (60-115) mg/dL Random Glucose (60-115) mg/dL Lactic Acid (0.5-2.0) mmol/L Lactic Acid F/U @ 2Hr (0.5-2.0) mmol/L Calcium (8.4-10.2) mg/dL Total Bilirubin (0.0-1.0) mg/dL AST (5-37) U/L ALT (0-40) U/L Alkaline Phosphatase (39-117) U/L Troponin I High Sens (<3.5-35.0) ng/L Total Protein (6.5-8.0) g/dL Albumin (3.5-5.0) g/dL Beta-Hydroxybutyrate (0.02-0.27) mmol/L Urine Color Urine Appearance Urine pH (5.0-9.0) Ur Specific [place] (1.005-1.025) Urine Protein (Neg-Trace) mg/dL Urine Glucose (UA) (Negative) mg/dL Urine Ketones (Negative) mg/dL Urine Blood (Negative) Urine Nitrite (Negative) Ur Leukocyte Esterase (Negative) Urine RBC (0-2) /HPF Urine WBC (0-5) /HPF Ur Squamous Epith Cells (0-2) /HPF Urine Bacteria (None Seen) Hyaline Casts (0-2) /LPF Influenza Type A (PCR) (Negative) Influenza Type B (PCR) (Negative) RSV RNA Qual (PCR) (Negative) SARS-CoV-2 RNA (RT-PCR) (Negative) ABG Data Attestation ABG: I personally reviewed and interpreted this ABG as follows: Interpretation: Metabolic acidosis Independent Interpretation I performed an independent interpretation of an: EKG Interpretation: Sinus tachycardia heart rate 118 beats per minute normal intervals normal axis no acute STT wave changes no acute ischemia Critical Care Time Critical Care Time Critical Care Time: Yes Total Critical Care Time: 70 Attestation: The patient was critically ill with a high probability of imminent or life threatening deterioration. I spent greater than 80minutes of discontinuous time evaluating the patient,delivering critical care at the bedside, discussing and evaluating pertinent data with consultants. Critical care time does not include time spent performing separately billable procedures or teaching. Total time spent performing critical care was ?70??minutes. Discharge Plan Discharge Clinical Impression: DKA (diabetic ketoacidosis) Patient Disposition: Admitted As Inpatient Interventions: Admission Worksheet (ED) Last Done: 11/21/23 21:00 Discharge Date/Time: 11/21/23 21:13
[2023-11-21 16:17] LABS: Beta-Hydroxybutyrate 10.03 mmol/L (0.02-0.27)
[2023-11-21 16:27] LABS: Lactic Acid 10.4 mmol/L (0.5-2.0)
[2023-11-21] MEDS: Insulin Regular, Human 100 UNIT/ML 3 ML VIAL 10 UNIT IVPUSH (16:28)
[2023-11-21] MEDS: Insulin Regular/NS 100 UNIT/100 ML PLAST..BAG 6 UNIT IVCONT (16:30)
[2023-11-21 16:33] LABS: Glucose, Whole Blood > 600 mg/dL (60-115)
[2023-11-21 16:38] LABS: VBG Base Excess -22.6 mmol/L; VBG HCO3 7 mmol/L (22-26); VBG pCO2 27 mmHg; VBG pH 7.01 (7.32-7.43); VBG pO2 53 mmHg
[2023-11-21 16:41] LABS: Venous Blood Gas Refer to POC result
--- NOTE | 2023-11-21 17:00 | PC.NURSE ---
having difficulty obtaining capillaary glucose as pt not having enough blood when prick finger- per md alvarez ok to use venous blood off iv if necessary after wasting.
[2023-11-21] MEDS: cefTRIAXone sodium 1 GM in 0.9 % Sodium Chloride 50 ML IV (17:16)
--- NOTE | 2023-11-21 17:28 | PC.NURSE ---
Pt POC 275, insulin drip changed per protocol, This RN approached MD to assess if he wanted d5 IVF started d/t blood sugar drop, MD reported no new fluid orders until POC less than 250.
[2023-11-21 17:31] LABS: Appearance Urine Clear; Color Urine Yellow; Glucose Urine UA >=1000 mg/dL (Negative); Leukocyte Esterase Urine Negative (Negative); Nitrite Urine Negative (Negative); Specific Gravity - Urine 1.025 (1.005-1.025); UMIC TRIGGER UACC YES; Urine Blood Negative (Negative); Urine Ketones 40 mg/dL (Negative); Urine Protein Trace mg/dL (Neg-Trace)
--- NOTE | 2023-11-21 17:31 | PC.NURSE ---
while off the floor covering rn hung abx and halved continuous insulin drip from 6 to 3u/hr per MD Martin verbal order as pt poc dropped from HIGH to 200s. per md martin no other interventions at this time.
[2023-11-21] MEDS: ondansetron HCL 4 MG/2 ML VIAL IVPUSH (17:39)
[2023-11-21 17:43] LABS: Bacteria Urine None Seen (None Seen); RBC Urine 0-2 /HPF (0-2); Squamous Epithelial Cell Urine 0-2 /HPF (0-2); WBC Urine 0-5 /HPF (0-5)
[2023-11-21 17:44] LABS: Reflex Lactate? Lactic Acid Added
--- NOTE | 2023-11-21 17:45 | PC.NURSE ---
n/v, given zofran per mar/md alvarez order
--- NOTE | 2023-11-21 18:21 | PC.NURSE ---
notified md kim auguste double checked glucose twice (once capillary and once venous off the line) and glucose went up to 550. with rn double check at bedside adjusted the dose per protocol. now at 4.5u/hr. sent bmp/lactic/vbg. md alvarez aware. no new orders. no longer nauseous s/p zofran
[2023-11-21 18:32] LABS: Glucose, Whole Blood 270 mg/dL (60-115)
[2023-11-21 18:32] LABS: VBG Base Excess -18.7 mmol/L; VBG HCO3 8 mmol/L (22-26); VBG pCO2 25 mmHg; VBG pH 7.13 (7.32-7.43); VBG pO2 62 mmHg
[2023-11-21 18:32] LABS: Glucose, Whole Blood 522 mg/dL (60-115)
[2023-11-21 18:32] LABS: Glucose, Whole Blood 550 mg/dL (60-115)
[2023-11-21 18:41] LABS: Anion Gap 32 (12-20); Blood Urea Nitrogen 38 mg/dL (9-16); Calcium 8.7 mg/dL (8.4-10.2); Carbon Dioxide 11 mmol/L (22-29); Chloride 107 mmol/L (96-108); Creatinine Clr Calc Pharmacy 31.7; Estimated Glomerular Filt Rate 28; Potassium 5.1 mmol/L (3.3-5.1); Sodium 145 mmol/L (135-145); ~Lactic Acid-LAB USE ONLY 5.7 mmol/L (0.5-2.0)
[2023-11-21 18:42] LABS: Venous Blood Gas Refer to POC result
[2023-11-21] MEDS: Lactated Ringers 500 ML 999 ML IVCONT (18:49)
--- NOTE | 2023-11-21 19:11 | PC.NURSE ---
insulin gtt remains same per protocol. no resp distress. md alvarez came to bedside to discuss plan of care w pt.
[2023-11-21 19:16] LABS: Glucose, Whole Blood 484 mg/dL (60-115)
--- NOTE | 2023-11-21 19:56 | PC.NURSE ---
report given to ICU
--- NOTE | 2023-11-21 20:07 | PC.NURSE ---
per protocol drip increased to 6.75
[2023-11-21] MEDS: Heparin Sodium,Porcine 5,000 UNIT/ML VIAL 5000 UNIT SUBCUT (20:08)
[2023-11-21 20:18] LABS: Reflex Lactate? 2 Y
[2023-11-21 20:19] LABS: Appearance Urine Clear; Color Urine Yellow; Glucose Urine UA >=1000 mg/dL (Negative); Leukocyte Esterase Urine Negative (Negative); Nitrite Urine Negative (Negative); Specific Gravity - Urine 1.025 (1.005-1.025); UMIC TRIGGER UACC YES; Urine Blood Negative (Negative); Urine Ketones 40 mg/dL (Negative); Urine Protein Trace mg/dL (Neg-Trace)
[2023-11-21 20:29] LABS: Amphetamine Screen Urine Not Detected (Not Detect); Barbiturates, Urine Not Detected (Not Detect); Benzodiazepines Screen Urine Not Detected (Not Detect); Buprenorphine Scr Not Detected (Not Detect); Cannabinoid Screen Urine Not Detected (Not Detect); Cocaine Screen Urine Not Detected (Not Detect); Fentanyl, urine Not Detected (Not Detect); Methadone Screen, Urine Not Detected (Not Detect); Opiate Screen Urine Not Detected (Not Detect); Oxycodone Screen Urine Not Detected (Not Detect); Phencyclidine Screen Urine Not Detected (Not Detect)
[2023-11-21 20:29] LABS: Glucose, Whole Blood 444 mg/dL (60-115)
[2023-11-21 20:30] LABS: Glucose Random 621 mg/dL (60-115)
[2023-11-21 20:40] LABS: Bacteria Urine None Seen (None Seen); RBC Urine 0-2 /HPF (0-2); Squamous Epithelial Cell Urine 0-2 /HPF (0-2); WBC Urine 0-5 /HPF (0-5)
--- NOTE | 2023-11-21 20:52 | PM.CCHP ---
History of Present Illness Date of Service: 11/21/23 Attending physician on admission: Oscar Islas Chief Complaint: DKA Mr. Oliver is a 68-year-old male with past medical history of type 1 diabetes diagnosed at age 43 and hypothyroidism who presented to the ER for vomiting and hyperglycemia that began last night.? He does have an insulin pump with continuous measurement and he initially thought the pump was malfunctioning. He is followed by Dr. Madie Hicks in [place] . On arrival to the emergency room, the patient's blood pressure was 98/50, heart rate 120, temp 98.0,? O2 sat 98% on room air.? Laboratory data significant for WBC 25.8, blood glucose 801, sodium 138, potassium 5.8, chloride 95, CO2 6, anion gap 43, BUN 39, creatinine 2.64, beta-hydroxybutyrate 10.03. Initial lactic acid was 10.4.? Venous blood gas showed pH of 7.01, pCO2 25, HC03 of 8.??? He received 3.5 L of crystalloids, a total of 20 units IV push insulin, Zofran 4mg,? ceftriaxone 1 g? and was started on an insulin drip. Review of Systems Review of Systems: Yes all other systems are reviewed and are negative Constitutional: Constitutional: Reports no additional constitutional complaints Eyes: Eyes: Denies blurry vision, Denies change in vision, Denies diplopia, Denies eye pain and Reports requires corrective lenses Cardiovascular: Cardiovascular: Denies chest pain, Denies irregular heart rhythm, Denies lightheadedness, Denies Loss of Consciousness and Denies dyspnea Respiratory: Respiratory: Denies no additional respiratory complaints, Denies chest congestion and Denies dyspnea Gastrointestinal: Gastrointestinal: Reports diarrhea and Reports vomiting Genitourinary: Genitourinary: Denies difficulty urinating, Denies dysuria and Denies urinary frequency Musculoskeletal: Musculoskeletal: Reports back pain (left mid back pulled muscle when vomiting) Endocrine: Endocrine: Reports as per [facility] Past Medical History Medical History Type 1 diabetes Social History Social History Household Members: Spouse Housing: House Do you presently have visiting nurse or other home services: No Patient Tobacco Use Status: Current someday Tobacco user Tobacco use type: Cigar Smoked in Last 30 Days: Yes e-Cigarette/Vaping Use: Never Used Patient Interested in Nicotine Replacement: No Patient Given Instructions on How to Stop Smoking: No Second Hand Smoke Exposure: No Use of substances other than those prescribed or required for medical reasons: No Currently Displaying Signs/Symptoms of Drug Intoxication Withdrawal: No Have you been hit, kicked, punched, or otherwise hurt by someone within the past year? If so, by whom?: No Do you feel safe in your current relationship?: Yes Is there a partner from a previous relationship who is making you feel unsafe now?: No Are you made to feel afraid or neglected: No Denominational Healthcare Practices: [facility] Advance Directives: No Advance Directives Information Provided: No Do you have thoughts of harming others: None Do you have a plan to hurt others: No Plan Recently lost weight without trying: No Nutrition Risks: No Nutritional Risk Poor oral hygiene: No service: No Travel History Ebola Risk: Travel/Contact With Anyone From Affected Area/s: No Meds Allergies Allergy/AdvReac Type Severity Reaction Status Date / Time No Known Allergies Allergy Verified 11/21/23 14:13 Active Medications: Current Medications Heparin Sodium (Porcine) (Heparin Sodium,Porcine 5,000 Unit/Ml Vial) 5,000 unit SUBCUT Q8H [facility] Last Admin: 11/21/23 20:08 Dose: 5,000 unit Insulin Human Regular (Myxredlin) 100 unit in 100 mls @ 6 mls/hr IVCONT .[id number] [facility]; Protocol Last Titration: 11/21/23 20:05 Dose: 6.75 unit/hr, 6.75 mls/hr Dextrose (D10) 250 mls @ 750 mls/hr IV Q30M PRN PRN Reason: BG <70 Sodium Chloride (Sodium Chloride 0.45 %) 1,000 mls @ 150 mls/hr IVCONT .[id number] [facility] Home Medications ?Medication ?Instructions ?Recorded ?Confirmed ?Last Taken ?Type cholecalciferol (vitamin D3) 50 50 mcg PO DAILY 11/22/23 11/22/23 Unknown History mcg (2,000 unit) capsule empagliflozin 25 mg tablet 25 mg PO DAILY 11/22/23 11/22/23 Unknown History (Jardiance) insulin aspart (niacinamide) See Rx Instructions .Route .COMPLEX 11/22/23 11/22/23 Unknown History (U-100) 100 unit/mL subcutaneous solution (Fiasp U-100 Insulin) levothyroxine 137 mcg tablet 137 mcg PO DAILY@0600 11/22/23 11/22/23 Unknown History metformin 500 mg tablet,extended 1,000 mg PO DAILY@1700 11/22/23 11/22/23 Unknown History release 24 hr rosuvastatin 40 mg tablet 40 mg PO DAILY 11/22/23 11/22/23 Unknown History Physical Exam Vital Signs: Vital Signs: Last Vital Signs Temp 97.4 F 11/21/23 20:00 Pulse 110 H 11/21/23 20:00 Resp 17 11/21/23 20:00 BP 102/62 11/21/23 20:00 Pulse Ox 98 11/21/23 20:00 O2 Del Method Room Air 11/21/23 18:00 BMI result Body Mass Index 29.0 Const: General: no acute distress and alert Orientation/consciousness: patient oriented x3 (answering appropriately.) HEENT: Head: Yes normocephalic and Yes atraumatic General nose exam: Normal external nose present (Nares patent, septum midline, sinuses nontender bilaterally.) Mouth: Normal oral and palatal mucosa present (No thrush, tongue in midline, mucosa moist.) Throat: Yes other (No erythema, no exudate.) Neck: Neck: Yes supple (no thyromegaly, trachea midline.) Carotids: normal carotid upstroke Resp: Auscultation: clear to auscultation bilaterally (normal work of breathing, no accessory muscle use) Cardio: Jugular venous distension: no JVD Rate: regular rate Rhythm: regular rhythm Heart sounds: no gallops, no murmurs and no rubs Peripheral pulses: Peripheral pulses 2+ throughout GI: Palpation (GI): Soft to palpation (nondistended.) and nontender Auscultation: normal bowel sounds Back/Spine/Pelvis: Back: No back tenderness Skin: General skin exam: no rashes or lesions noted Neuro: General: patient oriented x3 (answering appropriately.) Extrem: General: Yes full ROM, Yes capillary refill normal and Yes no clubbing, cyanosis or edema Psych: Speech and movement: Normal speech and movement present Affect: normal affect Attitude: cooperative Thought process: Normal thought process present Results Labs 11/22/23 05:22 11/22/23 12:02 Labs: Laboratory Results - last 24 hr 11/21/23 11/21/23 11/21/23 14:48 15:32 15:42 MCV 100.0 H MCH 32.2 MCHC 32.2 RDW 12.9 Plt Count 326 MPV 10.6 Immature Gran % (Auto) 1.3 H Neut % (Auto) 85.6 H Lymph % (Auto) 6.3 L [place] % (Auto) 6.5 Eos % (Auto) 0.0 Baso % (Auto) 0.3 Lymph # (Auto) 1.6 [place] # (Auto) 1.7 H Eos # (Auto) 0.0 Baso # (Auto) 0.1 Abs Immat Gran (auto) 0.33 H Absolute Neuts (auto) 22.1 H Absolute Nucleated RBC 0.000 Nucleated RBC % (auto) 0.0 Smear Tech's Comments VERIFIED VBG pH VBG pCO2 VBG pO2 VBG HCO3 VBG O2 Saturation VBG Base Excess Anion Gap 43 H Estim Creat Clear Calc 28.5 Estimated GFR 24 POC Glucose > 600 H* Random Glucose 801 H* Lactic Acid 10.4 H* Lactic Acid F/U @ 2Hr Calcium 10.3 H Total Bilirubin 0.5 AST 52 H ALT 81 H Alkaline Phosphatase 93 Troponin I High Sens 20.7 Total Protein 8.3 H Albumin 4.7 Beta-Hydroxybutyrate 10.03 H Urine Color Urine Appearance Urine pH Ur Specific [place] Urine Protein Urine Glucose (UA) Urine Ketones Urine Blood Urine Nitrite Ur Leukocyte Esterase Urine RBC Urine WBC Ur Squamous Epith Cells Urine Bacteria Hyaline Casts Urine Opiates Screen Ur Buprenorphine Scrn Ur Oxycodone Screen Urine Methadone Screen Urine Fentanyl Screen Ur Barbiturates Screen Ur Phencyclidine Scrn Ur Amphetamines Screen U Benzodiazepines Scrn Urine Cocaine Screen U Marijuana (THC) Screen Influenza Type A (PCR) NEGATIVE Influenza Type B (PCR) NEGATIVE RSV RNA Qual (PCR) NEGATIVE SARS-CoV-2 RNA (RT-PCR) NEGATIVE 11/21/23 11/21/23 11/21/23 16:28 17:05 17:19 MCV MCH MCHC RDW Plt Count MPV Immature Gran % (Auto) Neut % (Auto) Lymph % (Auto) [place] % (Auto) Eos % (Auto) Baso % (Auto) Lymph # (Auto) [place] # (Auto) Eos # (Auto) Baso # (Auto) Abs Immat Gran (auto) Absolute Neuts (auto) Absolute Nucleated RBC Nucleated RBC % (auto) Smear Tech's Comments VBG pH 7.01 L* VBG pCO2 27 VBG pO2 53 VBG HCO3 7 L VBG O2 Saturation 70.0 VBG Base Excess -22.6 Anion Gap Estim Creat Clear Calc Estimated GFR POC Glucose > 600 H* 270 H Random Glucose Lactic Acid Lactic Acid F/U @ 2Hr Calcium Total Bilirubin AST ALT Alkaline Phosphatase Troponin I High Sens Total Protein Albumin Beta-Hydroxybutyrate Urine Color Yellow Urine Appearance Clear Urine pH 5.0 Ur Specific [place] 1.025 Urine Protein Trace Urine Glucose (UA) >=1000 H Urine Ketones 40 Urine Blood Negative Urine Nitrite Negative Ur Leukocyte Esterase Negative Urine RBC 0-2 Urine WBC 0-5 Ur Squamous Epith Cells 0-2 Urine Bacteria None Seen Hyaline Casts 3-5 Urine Opiates Screen Ur Buprenorphine Scrn Ur Oxycodone Screen Urine Methadone Screen Urine Fentanyl Screen Ur Barbiturates Screen Ur Phencyclidine Scrn Ur Amphetamines Screen U Benzodiazepines Scrn Urine Cocaine Screen U Marijuana (THC) Screen Influenza Type A (PCR) Influenza Type B (PCR) RSV RNA Qual (PCR) SARS-CoV-2 RNA (RT-PCR) 11/21/23 11/21/23 11/21/23 18:08 18:11 18:13 MCV MCH MCHC RDW Plt Count MPV Immature Gran % (Auto) Neut % (Auto) Lymph % (Auto) [place] % (Auto) Eos % (Auto) Baso % (Auto) Lymph # (Auto) [place] # (Auto) Eos # (Auto) Baso # (Auto) Abs Immat Gran (auto) Absolute Neuts (auto) Absolute Nucleated RBC Nucleated RBC % (auto) Smear Tech's Comments VBG pH VBG pCO2 VBG pO2 VBG HCO3 VBG O2 Saturation VBG Base Excess Anion Gap 32 H Estim Creat Clear Calc 31.7 Estimated GFR 28 POC Glucose 522 H* 550 H* Random Glucose 621 H* Lactic Acid Lactic Acid F/U @ 2Hr 5.7 H* Calcium 8.7 D Total Bilirubin AST ALT Alkaline Phosphatase Troponin I High Sens Total Protein Albumin Beta-Hydroxybutyrate Urine Color Urine Appearance Urine pH Ur Specific [place] Urine Protein Urine Glucose (UA) Urine Ketones Urine Blood Urine Nitrite Ur Leukocyte Esterase Urine RBC Urine WBC Ur Squamous Epith Cells Urine Bacteria Hyaline Casts Urine Opiates Screen Ur Buprenorphine Scrn Ur Oxycodone Screen Urine Methadone Screen Urine Fentanyl Screen Ur Barbiturates Screen Ur Phencyclidine Scrn Ur Amphetamines Screen U Benzodiazepines Scrn Urine Cocaine Screen U Marijuana (THC) Screen Influenza Type A (PCR) Influenza Type B (PCR) RSV RNA Qual (PCR) SARS-CoV-2 RNA (RT-PCR) 11/21/23 11/21/23 11/21/23 18:20 19:07 20:02 MCV MCH MCHC RDW Plt Count MPV Immature Gran % (Auto) Neut % (Auto) Lymph % (Auto) [place] % (Auto) Eos % (Auto) Baso % (Auto) Lymph # (Auto) [place] # (Auto) Eos # (Auto) Baso # (Auto) Abs Immat Gran (auto) Absolute Neuts (auto) Absolute Nucleated RBC Nucleated RBC % (auto) Smear Tech's Comments VBG pH 7.13 L* VBG pCO2 25 VBG pO2 62 VBG HCO3 8 L VBG O2 Saturation 86.0 VBG Base Excess -18.7 Anion Gap Estim Creat Clear Calc Estimated GFR POC Glucose 484 H* 444 H* Random Glucose Lactic Acid Lactic Acid F/U @ 2Hr Calcium Total Bilirubin AST ALT Alkaline Phosphatase Troponin I High Sens Total Protein Albumin Beta-Hydroxybutyrate Urine Color Urine Appearance Urine pH Ur Specific [place] Urine Protein Urine Glucose (UA) Urine Ketones Urine Blood Urine Nitrite Ur Leukocyte Esterase Urine RBC Urine WBC Ur Squamous Epith Cells Urine Bacteria Hyaline Casts Urine Opiates Screen Ur Buprenorphine Scrn Ur Oxycodone Screen Urine Methadone Screen Urine Fentanyl Screen Ur Barbiturates Screen Ur Phencyclidine Scrn Ur Amphetamines Screen U Benzodiazepines Scrn Urine Cocaine Screen U Marijuana (THC) Screen Influenza Type A (PCR) Influenza Type B (PCR) RSV RNA Qual (PCR) SARS-CoV-2 RNA (RT-PCR) 11/21/23 11/21/23 20:11 20:12 MCV MCH MCHC RDW Plt Count MPV Immature Gran % (Auto) Neut % (Auto) Lymph % (Auto) [place] % (Auto) Eos % (Auto) Baso % (Auto) Lymph # (Auto) [place] # (Auto) Eos # (Auto) Baso # (Auto) Abs Immat Gran (auto) Absolute Neuts (auto) Absolute Nucleated RBC Nucleated RBC % (auto) Smear Tech's Comments VBG pH VBG pCO2 VBG pO2 VBG HCO3 VBG O2 Saturation VBG Base Excess Anion Gap Estim Creat Clear Calc Estimated GFR POC Glucose Random Glucose Lactic Acid Lactic Acid F/U @ 2Hr Calcium Total Bilirubin AST ALT Alkaline Phosphatase Troponin I High Sens Total Protein Albumin Beta-Hydroxybutyrate Urine Color Yellow Urine Appearance Clear Urine pH 5.0 Ur Specific [place] 1.025 Urine Protein Trace Urine Glucose (UA) >=1000 H Urine Ketones 40 Urine Blood Negative Urine Nitrite Negative Ur Leukocyte Esterase Negative Urine RBC 0-2 Urine WBC 0-5 Ur Squamous Epith Cells 0-2 Urine Bacteria None Seen Hyaline Casts 11-20 Urine Opiates Screen Not Detected Ur Buprenorphine Scrn Not Detected Ur Oxycodone Screen Not Detected Urine Methadone Screen Not Detected Urine Fentanyl Screen Not Detected Ur Barbiturates Screen Not Detected Ur Phencyclidine Scrn Not Detected Ur Amphetamines Screen Not Detected U Benzodiazepines Scrn Not Detected Urine Cocaine Screen Not Detected U Marijuana (THC) Screen Not Detected Influenza Type A (PCR) Influenza Type B (PCR) RSV RNA Qual (PCR) SARS-CoV-2 RNA (RT-PCR) Assessment and Plan (1) DKA (diabetic ketoacidosis): Status: Acute Plan 68-year-old male with PMH of type 1 diabetes admitted for management of DKA. Plan: Neuro:? no acute issues?? Cardiac: No acute issues. Pulmonary:? no acute issues?? Renal: ? HERNAN- ? most likely related to hypoperfusion, nonoliguric.? Continue IV fluid.? Continue to check renal induces and urine output. Closely monitor electrolytes. GI:? Vomiting from? gastroparesis. Zofran p.r.n.? Endo:? Diabetic ketoacidosis-? continue IVF. Follow DKA protocol? ID: ? Sepsis not suspected. Leukocytosis could be an acute phase reactant. Lactic acidosis likely due to DKA. Blood cultures pending. UA sent. Pt? was treated with empiric antibiotics in the emergency room. Heme/Onc:? No acute issues. Psych:? No acute issues. Miscellaneous:? No acute issues. Prophylaxis:? ? Heparin / bilateral pneumatic pumps Diet: NPO with sips of water, ice chips Critical care time: does not qualify for critical care?
[2023-11-21 21:00] LABS: Glucose, Whole Blood 430 mg/dL (60-115)
[2023-11-21] MEDS: Sodium Chloride 0.45 % 1,000 ML 150 ML IVCONT (21:03)
[2023-11-21 21:54] LABS: Hematocrit 42.4 % (42.0-52.0); Hemoglobin 14.7 g/dl (14.0-18.0); Mean Corpuscular HGB Conc 34.7 g/dl (31.0-36.0); Mean Corpuscular Hemoglobin 32.6 pg (27.0-33.0); Mean Platelet Volume 10.3 fL (9.4-12.4); Platelet Count 290 X10*3/uL (160-400); Red Blood Count 4.51 X10*6/uL (4.60-5.80); Red Cell Distribution Width 13.1 % (11.0-16.0)
[2023-11-21 22:04] LABS: Glucose, Whole Blood 309 mg/dL (60-115)
[2023-11-21 22:05] LABS: VBG Base Excess -8.1 mmol/L; VBG HCO3 15 mmol/L (22-26); VBG pCO2 28 mmHg; VBG pH 7.35 (7.32-7.43); VBG pO2 42 mmHg
[2023-11-21 22:07] LABS: Venous Blood Gas Refer to POC result
[2023-11-21 22:12] LABS: ~Lactic Acid-LAB USE ONLY 3.7 mmol/L (0.5-2.0)
[2023-11-21 22:21] LABS: Anion Gap 22 (12-20); Blood Urea Nitrogen 36 mg/dL (9-16); Calcium 9.1 mg/dL (8.4-10.2); Carbon Dioxide 16 mmol/L (22-29); Chloride 109 mmol/L (96-108); Creatinine Clr Calc Pharmacy 38.6; Estimated Glomerular Filt Rate 35; Glucose Random 381 mg/dL (60-115); Potassium 4.3 mmol/L (3.3-5.1); Sodium 143 mmol/L (135-145)
[2023-11-21 22:40] LABS: Magnesium 2.5 mg/dL (1.6-2.6)
[2023-11-21 23:09] LABS: Glucose, Whole Blood 260 mg/dL (60-115)
[2023-11-21] MEDS: Lactated Ringers 1,000 ML 150 ML IVCONT (23:15)
[2023-11-21 23:58] LABS: Glucose, Whole Blood 212 mg/dL (60-115)
[2023-11-22] VITALS (20 sets, daily range): BP systolic 90–118; BP diastolic 55–73; PULSE 82–112; RESP 13–20; TEMP 36.4–37.1; O2SAT 91–98; BMI 28.9
[2023-11-22 01:12] LABS: Glucose, Whole Blood 154 mg/dL (60-115)
[2023-11-22] MEDS: Dextrose 5 % and Lactated Ring 1,000 ML 150 ML IVCONT ×2 (01:35→08:00)
[2023-11-22 01:58] LABS: Anion Gap 16 (12-20); Blood Urea Nitrogen 35 mg/dL (9-16); Carbon Dioxide 21 mmol/L (22-29); Chloride 113 mmol/L (96-108); Creatinine Clr Calc Pharmacy 41.6; Estimated Glomerular Filt Rate 38; Glucose Random 157 mg/dL (60-115); Potassium 4.6 mmol/L (3.3-5.1); Sodium 145 mmol/L (135-145)
[2023-11-22 02:01] LABS: Glucose, Whole Blood 137 mg/dL (60-115)
[2023-11-22 03:08] LABS: Glucose, Whole Blood 142 mg/dL (60-115)
[2023-11-22 03:59] LABS: Glucose, Whole Blood 151 mg/dL (60-115)
[2023-11-22] MEDS: Heparin Sodium,Porcine 5,000 UNIT/ML VIAL 5000 UNIT SUBCUT ×3 (04:05→21:01)
[2023-11-22 05:07] LABS: Glucose, Whole Blood 178 mg/dL (60-115)
[2023-11-22 05:27] LABS: VBG Base Excess 0.1 mmol/L; VBG HCO3 23 mmol/L (22-26); VBG pCO2 35 mmHg; VBG pH 7.43 (7.32-7.43); VBG pO2 32 mmHg
[2023-11-22 05:28] LABS: Venous Blood Gas Refer to POC result
[2023-11-22 05:41] LABS: Basophils Absolute Auto 0.1 X10*3/uL (0.0-0.2); Basophils Percent Auto 0.2 % (0-2); Hematocrit 40.3 % (42.0-52.0); Hemoglobin 13.7 g/dl (14.0-18.0); Imm Gran Abs Auto 0.15 X10*3/uL (0.00-0.03); Imm Gran Pct Auto 0.7 % (0.0-0.4); Lymphocytes Absolute Auto 2.3 X10*3/uL (1.2-4.9); Lymphocytes Percent Auto 10.2 % (20-40); MANUAL DIFF FLAG SCAN; Mean Corpuscular Hemoglobin 32.3 pg (27.0-33.0); Mean Platelet Volume 9.8 fL (9.4-12.4); Monocytes Absolute Auto 1.7 X10*3/uL (0.1-1.2); Monocytes Percent Auto 7.5 % (2-11); Neutrophils Absolute Auto 18.2 x10*3/uL (2.0-8.3); Neutrophils Percent Auto 81.4 % (45-73); Platelet Count 291 X10*3/uL (160-400); Red Blood Count 4.24 X10*6/uL (4.60-5.80); Red Cell Distribution Width 13.2 % (11.0-16.0); SCAN SMEAR FLAG 1; White Blood Count 22.3 X10*3/uL (4.8-10.8)
[2023-11-22 05:59] LABS: Albumin Level 3.8 g/dL (3.5-5.0); Anion Gap 15 (12-20); Blood Urea Nitrogen 31 mg/dL (9-16); Calcium 8.8 mg/dL (8.4-10.2); Carbon Dioxide 23 mmol/L (22-29); Chloride 110 mmol/L (96-108); Creatinine Clr Calc Pharmacy 54.6; Estimated Glomerular Filt Rate 52; Glucose Random 190 mg/dL (60-115); Magnesium 2.4 mg/dL (1.6-2.6); Phosphorus 3.1 mg/dL (2.7-4.5); Potassium 4.3 mmol/L (3.3-5.1); Sodium 144 mmol/L (135-145)
[2023-11-22 06:07] LABS: SLIDE REVIEW VERIFIED
[2023-11-22 06:07] LABS: Glucose, Whole Blood 215 mg/dL (60-115)
--- NOTE | 2023-11-22 07:06 | PC.NURSE ---
Patient admitted from ED with insulin gtt infusing. Insulin gtt titrated per protocol or with direction from Shirley Monae NP.
[2023-11-22 07:14] LABS: Glucose, Whole Blood 176 mg/dL (60-115)
[2023-11-22] MEDS: Insulin Regular/NS 100 UNIT/100 ML PLAST..BAG IVCONT (08:00)
[2023-11-22 08:07] LABS: Glucose, Whole Blood 168 mg/dL (60-115)
[2023-11-22 09:14] LABS: Glucose, Whole Blood 144 mg/dL (60-115)
[2023-11-22] MEDS: Insulin Glargine,Hum.rec.anlog 100 UNIT/ML 10 ML VIAL 40 UNIT SUBCUT (09:38)
--- NOTE | 2023-11-22 10:01 | PHA.MEDREC ---
Pharmacy Consult ? Medication Reconciliation Pharmacy has completed the medication reconciliation, brought in all medications in the bottles, confirmed insulin dosing from label on fiasp box.
--- NOTE | 2023-11-22 10:29 | MHC.CM.PN ---
Met w/pt to discuss d/c planning needs: pt from home w/spouse, independent with all care needs, drives and sees an grinder hardboard in [place]. Pt has an insulin pump which he feels is malfunctioning and has called his vendor for assistance. He is very well versed in DM management and denies service needs or assistance. Pt has insulin and testing supplies but will need syringes (script) upon d/c in the event his pump issue is unresolved. ICU MD aware HCP at home: copy requested. Spouse to transport. CM to follow for changes in d/c plan.
[2023-11-22 11:01] LABS: Glucose, Whole Blood 172 mg/dL (60-115)
[2023-11-22 11:45] LABS: Glucose, Whole Blood 221 mg/dL (60-115)
[2023-11-22] MEDS: Insulin Lispro 100 UNIT/ML 3 ML VIAL SUBCUT ×2 (12:11→21:00)
[2023-11-22 12:28] LABS: Anion Gap 14 (12-20); Blood Urea Nitrogen 26 mg/dL (9-16); Calcium 8.8 mg/dL (8.4-10.2); Carbon Dioxide 22 mmol/L (22-29); Chloride 109 mmol/L (96-108); Creatinine Clr Calc Pharmacy 64.2; Estimated Glomerular Filt Rate > 60; Glucose Random 268 mg/dL (60-115); Potassium 4.1 mmol/L (3.3-5.1); Sodium 141 mmol/L (135-145)
--- NOTE | 2023-11-22 13:40 | P.PNCC_ITS ---
Subjective Subjective Date of Service: 11/22/23 Interval History: 66-year-old gentleman with underlying type 1 diabetes mellitus and hypothyroidism admitted on 11/21/2023 with diabetic ketoacidosis, likely secondary to insulin pump malfunction requiring insulin drip. No events overnight. Titrated off insulin drip. Critical Care Time (minutes): 0 Physical Exam 2 Vital Signs: Vital Signs: Last Vital Signs Temp 98.5 F 11/22/23 12:00 Pulse 94 11/22/23 13:00 Resp 15 11/22/23 13:00 BP 94/64 11/22/23 13:00 Pulse Ox 92 11/22/23 13:00 O2 Del Method Room Air 11/22/23 13:00 BMI result Body Mass Index 28.9 Const: General: no acute distress, alert and awake Eyes: Sclerae: sclerae normal EOM: EOMs intact bilaterally Neck: Neck: Yes no lymphadenopathy, Yes trachea midline and Yes supple Resp: Effort & Inspection: normal respiratory effort and no respiratory distress Auscultation: clear to auscultation bilaterally Cardio: Rate: regular rate Rhythm: regular rhythm Heart sounds: no gallops, no murmurs and no rubs GI: Palpation (GI): Soft to palpation and Other GI palpation findings present ( Nontender) Auscultation: normal bowel sounds Extrem: General: Yes no pedal edema, No clubbing and No cyanosis Objective Data Labs 11/22/23 05:22 11/22/23 12:02 Labs: Laboratory Results - last 24 hr 11/21/23 11/21/23 11/21/23 14:48 15:32 15:42 WBC 25.8 H RBC 5.10 Hgb 16.4 Hct 51.0 MCV 100.0 H MCH 32.2 MCHC 32.2 RDW 12.9 Plt Count 326 MPV 10.6 Immature Gran % (Auto) 1.3 H Neut % (Auto) 85.6 H Lymph % (Auto) 6.3 L [place] % (Auto) 6.5 Eos % (Auto) 0.0 Baso % (Auto) 0.3 Lymph # (Auto) 1.6 [place] # (Auto) 1.7 H Eos # (Auto) 0.0 Baso # (Auto) 0.1 Abs Immat Gran (auto) 0.33 H Absolute Neuts (auto) 22.1 H Absolute Nucleated RBC 0.000 Nucleated RBC % (auto) 0.0 Smear Tech's Comments VERIFIED VBG pH VBG pCO2 VBG pO2 VBG HCO3 VBG O2 Saturation VBG Base Excess Sodium 138 Potassium 5.8 H Chloride 95 L Carbon Dioxide 6 L* Anion Gap 43 H BUN 39 H Creatinine 2.64 H Estim Creat Clear Calc 28.5 Estimated GFR 24 POC Glucose > 600 H* Random Glucose 801 H* Lactic Acid 10.4 H* Lactic Acid F/U @ 2Hr Lactic Acid F/U @ 4Hr Calcium 10.3 H Phosphorus Magnesium Total Bilirubin 0.5 AST 52 H ALT 81 H Alkaline Phosphatase 93 Troponin I High Sens 20.7 Total Protein 8.3 H Albumin 4.7 Beta-Hydroxybutyrate 10.03 H Urine Color Urine Appearance Urine pH Ur Specific [place] Urine Protein Urine Glucose (UA) Urine Ketones Urine Blood Urine Nitrite Ur Leukocyte Esterase Urine RBC Urine WBC Ur Squamous Epith Cells Urine Bacteria Hyaline Casts Urine Opiates Screen Ur Buprenorphine Scrn Ur Oxycodone Screen Urine Methadone Screen Urine Fentanyl Screen Ur Barbiturates Screen Ur Phencyclidine Scrn Ur Amphetamines Screen U Benzodiazepines Scrn Urine Cocaine Screen U Marijuana (THC) Screen Influenza Type A (PCR) NEGATIVE Influenza Type B (PCR) NEGATIVE RSV RNA Qual (PCR) NEGATIVE SARS-CoV-2 RNA (RT-PCR) NEGATIVE 11/21/23 11/21/23 11/21/23 16:28 17:05 17:19 WBC RBC Hgb Hct MCV MCH MCHC RDW Plt Count MPV Immature Gran % (Auto) Neut % (Auto) Lymph % (Auto) [place] % (Auto) Eos % (Auto) Baso % (Auto) Lymph # (Auto) [place] # (Auto) Eos # (Auto) Baso # (Auto) Abs Immat Gran (auto) Absolute Neuts (auto) Absolute Nucleated RBC Nucleated RBC % (auto) Smear Tech's Comments VBG pH 7.01 L* VBG pCO2 27 VBG pO2 53 VBG HCO3 7 L VBG O2 Saturation 70.0 VBG Base Excess -22.6 Sodium Potassium Chloride Carbon Dioxide Anion Gap BUN Creatinine Estim Creat Clear Calc Estimated GFR POC Glucose > 600 H* 270 H Random Glucose Lactic Acid Lactic Acid F/U @ 2Hr Lactic Acid F/U @ 4Hr Calcium Phosphorus Magnesium Total Bilirubin AST ALT Alkaline Phosphatase Troponin I High Sens Total Protein Albumin Beta-Hydroxybutyrate Urine Color Yellow Urine Appearance Clear Urine pH 5.0 Ur Specific [place] Pool 1.025 Urine Protein Trace Urine Glucose (UA) >=1000 H Urine Ketones 40 Urine Blood Negative Urine Nitrite Negative Ur Leukocyte Esterase Negative Urine RBC 0-2 Urine WBC 0-5 Ur Squamous Epith Cells 0-2 Urine Bacteria None Seen Hyaline Casts 3-5 Urine Opiates Screen Ur Buprenorphine Scrn Ur Oxycodone Screen Urine Methadone Screen Urine Fentanyl Screen Ur Barbiturates Screen Ur Phencyclidine Scrn Ur Amphetamines Screen U Benzodiazepines Scrn Urine Cocaine Screen U Marijuana (THC) Screen Influenza Type A (PCR) Influenza Type B (PCR) RSV RNA Qual (PCR) SARS-CoV-2 RNA (RT-PCR) 11/21/23 11/21/23 11/21/23 18:08 18:11 18:13 WBC RBC Hgb Hct MCV MCH MCHC RDW Plt Count MPV Immature Gran % (Auto) Neut % (Auto) Lymph % (Auto) [place] % (Auto) Eos % (Auto) Baso % (Auto) Lymph # (Auto) [place] # (Auto) Eos # (Auto) Baso # (Auto) Abs Immat Gran (auto) Absolute Neuts (auto) Absolute Nucleated RBC Nucleated RBC % (auto) Smear Tech's Comments VBG pH VBG pCO2 VBG pO2 VBG HCO3 VBG O2 Saturation VBG Base Excess Sodium 145 Potassium 5.1 Chloride 107 Carbon Dioxide 11 L Anion Gap 32 H BUN 38 H Creatinine 2.37 H Estim Creat Clear Calc 31.7 Estimated GFR 28 POC Glucose 522 H* 550 H* Random Glucose 621 H* Lactic Acid Lactic Acid F/U @ 2Hr 5.7 H* Lactic Acid F/U @ 4Hr Calcium 8.7 D Phosphorus Magnesium Total Bilirubin AST ALT Alkaline Phosphatase Troponin I High Sens Total Protein Albumin Beta-Hydroxybutyrate Urine Color Urine Appearance Urine pH Ur Specific [place] Pool Urine Protein Urine Glucose (UA) Urine Ketones Urine Blood Urine Nitrite Ur Leukocyte Esterase Urine RBC Urine WBC Ur Squamous Epith Cells Urine Bacteria Hyaline Casts Urine Opiates Screen Ur Buprenorphine Scrn Ur Oxycodone Screen Urine Methadone Screen Urine Fentanyl Screen Ur Barbiturates Screen Ur Phencyclidine Scrn Ur Amphetamines Screen U Benzodiazepines Scrn Urine Cocaine Screen U Marijuana (THC) Screen Influenza Type A (PCR) Influenza Type B (PCR) RSV RNA Qual (PCR) SARS-CoV-2 RNA (RT-PCR) 11/21/23 11/21/23 11/21/23 18:20 19:07 20:02 WBC RBC Hgb Hct MCV MCH MCHC RDW Plt Count MPV Immature Gran % (Auto) Neut % (Auto) Lymph % (Auto) [place] % (Auto) Eos % (Auto) Baso % (Auto) Lymph # (Auto) [place] # (Auto) Eos # (Auto) Baso # (Auto) Abs Immat Gran (auto) Absolute Neuts (auto) Absolute Nucleated RBC Nucleated RBC % (auto) Smear Tech's Comments VBG pH 7.13 L* VBG pCO2 25 VBG pO2 62 VBG HCO3 8 L VBG O2 Saturation 86.0 VBG Base Excess -18.7 Sodium Potassium Chloride Carbon Dioxide Anion Gap BUN Creatinine Estim Creat Clear Calc Estimated GFR POC Glucose 484 H* 444 H* Random Glucose Lactic Acid Lactic Acid F/U @ 2Hr Lactic Acid F/U @ 4Hr Calcium Phosphorus Magnesium Total Bilirubin AST ALT Alkaline Phosphatase Troponin I High Sens Total Protein Albumin Beta-Hydroxybutyrate Urine Color Urine Appearance Urine pH Ur Specific [place] Pool Urine Protein Urine Glucose (UA) Urine Ketones Urine Blood Urine Nitrite Ur Leukocyte Esterase Urine RBC Urine WBC Ur Squamous Epith Cells Urine Bacteria Hyaline Casts Urine Opiates Screen Ur Buprenorphine Scrn Ur Oxycodone Screen Urine Methadone Screen Urine Fentanyl Screen Ur Barbiturates Screen Ur Phencyclidine Scrn Ur Amphetamines Screen U Benzodiazepines Scrn Urine Cocaine Screen U Marijuana (THC) Screen Influenza Type A (PCR) Influenza Type B (PCR) RSV RNA Qual (PCR) SARS-CoV-2 RNA (RT-PCR) 11/21/23 11/21/23 11/21/23 20:11 20:12 20:54 WBC RBC Hgb Hct MCV MCH MCHC RDW Plt Count MPV Immature Gran % (Auto) Neut % (Auto) Lymph % (Auto) [place] % (Auto) Eos % (Auto) Baso % (Auto) Lymph # (Auto) [place] # (Auto) Eos # (Auto) Baso # (Auto) Abs Immat Gran (auto) Absolute Neuts (auto) Absolute Nucleated RBC Nucleated RBC % (auto) Smear Tech's Comments VBG pH VBG pCO2 VBG pO2 VBG HCO3 VBG O2 Saturation VBG Base Excess Sodium Potassium Chloride Carbon Dioxide Anion Gap BUN Creatinine Estim Creat Clear Calc Estimated GFR POC Glucose 430 H* Random Glucose Lactic Acid Lactic Acid F/U @ 2Hr Lactic Acid F/U @ 4Hr Calcium Phosphorus Magnesium Total Bilirubin AST ALT Alkaline Phosphatase Troponin I High Sens Total Protein Albumin Beta-Hydroxybutyrate Urine Color Yellow Urine Appearance Clear Urine pH 5.0 Ur Specific [place] Pool 1.025 Urine Protein Trace Urine Glucose (UA) >=1000 H Urine Ketones 40 Urine Blood Negative Urine Nitrite Negative Ur Leukocyte Esterase Negative Urine RBC 0-2 Urine WBC 0-5 Ur Squamous Epith Cells 0-2 Urine Bacteria None Seen Hyaline Casts 11-20 Urine Opiates Screen Not Detected Ur Buprenorphine Scrn Not Detected Ur Oxycodone Screen Not Detected Urine Methadone Screen Not Detected Urine Fentanyl Screen Not Detected Ur Barbiturates Screen Not Detected Ur Phencyclidine Scrn Not Detected Ur Amphetamines Screen Not Detected U Benzodiazepines Scrn Not Detected Urine Cocaine Screen Not Detected U Marijuana (THC) Screen Not Detected Influenza Type A (PCR) Influenza Type B (PCR) RSV RNA Qual (PCR) SARS-CoV-2 RNA (RT-PCR) 11/21/23 11/21/23 11/21/23 21:47 21:58 22:01 WBC 24.0 H RBC 4.51 L Hgb 14.7 Hct 42.4 MCV 94.0 D MCH 32.6 MCHC 34.7 RDW 13.1 Plt Count 290 MPV 10.3 Immature Gran % (Auto) Neut % (Auto) Lymph % (Auto) [place] % (Auto) Eos % (Auto) Baso % (Auto) Lymph # (Auto) [place] # (Auto) Eos # (Auto) Baso # (Auto) Abs Immat Gran (auto) Absolute Neuts (auto) Absolute Nucleated RBC 0.000 Nucleated RBC % (auto) 0.0 Smear Tech's Comments VBG pH 7.35 VBG pCO2 28 VBG pO2 42 VBG HCO3 15 L VBG O2 Saturation 72.0 VBG Base Excess -8.1 Sodium 143 Potassium 4.3 Chloride 109 H Carbon Dioxide 16 L Anion Gap 22 H BUN 36 H Creatinine 1.95 H Estim Creat Clear Calc 38.6 Estimated GFR 35 POC Glucose 309 H Random Glucose 381 H* Lactic Acid Lactic Acid F/U @ 2Hr Lactic Acid F/U @ 4Hr 3.7 H* Calcium 9.1 Phosphorus Magnesium 2.5 Total Bilirubin AST ALT Alkaline Phosphatase Troponin I High Sens Total Protein Albumin Beta-Hydroxybutyrate Urine Color Urine Appearance Urine pH Ur Specific [place] Pool Urine Protein Urine Glucose (UA) Urine Ketones Urine Blood Urine Nitrite Ur Leukocyte Esterase Urine RBC Urine WBC Ur Squamous Epith Cells Urine Bacteria Hyaline Casts Urine Opiates Screen Ur Buprenorphine Scrn Ur Oxycodone Screen Urine Methadone Screen Urine Fentanyl Screen Ur Barbiturates Screen Ur Phencyclidine Scrn Ur Amphetamines Screen U Benzodiazepines Scrn Urine Cocaine Screen U Marijuana (THC) Screen Influenza Type A (PCR) Influenza Type B (PCR) RSV RNA Qual (PCR) SARS-CoV-2 RNA (RT-PCR) 11/21/23 11/21/23 11/22/23 23:05 23:49 01:09 WBC RBC Hgb Hct MCV MCH MCHC RDW Plt Count MPV Immature Gran % (Auto) Neut % (Auto) Lymph % (Auto) [place] % (Auto) Eos % (Auto) Baso % (Auto) Lymph # (Auto) [place] # (Auto) Eos # (Auto) Baso # (Auto) Abs Immat Gran (auto) Absolute Neuts (auto) Absolute Nucleated RBC Nucleated RBC % (auto) Smear Tech's Comments VBG pH VBG pCO2 VBG pO2 VBG HCO3 VBG O2 Saturation VBG Base Excess Sodium Potassium Chloride Carbon Dioxide Anion Gap BUN Creatinine Estim Creat Clear Calc Estimated GFR POC Glucose 260 H 212 H 154 H Random Glucose Lactic Acid Lactic Acid F/U @ 2Hr Lactic Acid F/U @ 4Hr Calcium Phosphorus Magnesium Total Bilirubin AST ALT Alkaline Phosphatase Troponin I High Sens Total Protein Albumin Beta-Hydroxybutyrate Urine Color Urine Appearance Urine pH Ur Specific [place] Pool Urine Protein Urine Glucose (UA) Urine Ketones Urine Blood Urine Nitrite Ur Leukocyte Esterase Urine RBC Urine WBC Ur Squamous Epith Cells Urine Bacteria Hyaline Casts Urine Opiates Screen Ur Buprenorphine Scrn Ur Oxycodone Screen Urine Methadone Screen Urine Fentanyl Screen Ur Barbiturates Screen Ur Phencyclidine Scrn Ur Amphetamines Screen U Benzodiazepines Scrn Urine Cocaine Screen U Marijuana (THC) Screen Influenza Type A (PCR) Influenza Type B (PCR) RSV RNA Qual (PCR) SARS-CoV-2 RNA (RT-PCR) 11/22/23 11/22/23 11/22/23 01:33 01:57 03:03 WBC RBC Hgb Hct MCV MCH MCHC RDW Plt Count MPV Immature Gran % (Auto) Neut % (Auto) Lymph % (Auto) [place] % (Auto) Eos % (Auto) Baso % (Auto) Lymph # (Auto) [place] # (Auto) Eos # (Auto) Baso # (Auto) Abs Immat Gran (auto) Absolute Neuts (auto) Absolute Nucleated RBC Nucleated RBC % (auto) Smear Tech's Comments VBG pH VBG pCO2 VBG pO2 VBG HCO3 VBG O2 Saturation VBG Base Excess Sodium 145 Potassium 4.6 Chloride 113 H Carbon Dioxide 21 L Anion Gap 16 BUN 35 H Creatinine 1.81 H Estim Creat Clear Calc 41.6 Estimated GFR 38 POC Glucose 137 H 142 H Random Glucose 157 H Lactic Acid Lactic Acid F/U @ 2Hr Lactic Acid F/U @ 4Hr Calcium 9.0 Phosphorus Magnesium Total Bilirubin AST ALT Alkaline Phosphatase Troponin I High Sens Total Protein Albumin Beta-Hydroxybutyrate Urine Color Urine Appearance Urine pH Ur Specific [place] Pool Urine Protein Urine Glucose (UA) Urine Ketones Urine Blood Urine Nitrite Ur Leukocyte Esterase Urine RBC Urine WBC Ur Squamous Epith Cells Urine Bacteria Hyaline Casts Urine Opiates Screen Ur Buprenorphine Scrn Ur Oxycodone Screen Urine Methadone Screen Urine Fentanyl Screen Ur Barbiturates Screen Ur Phencyclidine Scrn Ur Amphetamines Screen U Benzodiazepines Scrn Urine Cocaine Screen U Marijuana (THC) Screen Influenza Type A (PCR) Influenza Type B (PCR) RSV RNA Qual (PCR) SARS-CoV-2 RNA (RT-PCR) 11/22/23 11/22/23 11/22/23 03:55 05:03 05:20 WBC RBC Hgb Hct MCV MCH MCHC RDW Plt Count MPV Immature Gran % (Auto) Neut % (Auto) Lymph % (Auto) [place] % (Auto) Eos % (Auto) Baso % (Auto) Lymph # (Auto) [place] # (Auto) Eos # (Auto) Baso # (Auto) Abs Immat Gran (auto) Absolute Neuts (auto) Absolute Nucleated RBC Nucleated RBC % (auto) Smear Tech's Comments VBG pH 7.43 VBG pCO2 35 VBG pO2 32 VBG HCO3 23 VBG O2 Saturation 56.0 VBG Base Excess 0.1 Sodium Potassium Chloride Carbon Dioxide Anion Gap BUN Creatinine Estim Creat Clear Calc Estimated GFR POC Glucose 151 H 178 H Random Glucose Lactic Acid Lactic Acid F/U @ 2Hr Lactic Acid F/U @ 4Hr Calcium Phosphorus Magnesium Total Bilirubin AST ALT Alkaline Phosphatase Troponin I High Sens Total Protein Albumin Beta-Hydroxybutyrate Urine Color Urine Appearance Urine pH Ur Specific [place] Pool Urine Protein Urine Glucose (UA) Urine Ketones Urine Blood Urine Nitrite Ur Leukocyte Esterase Urine RBC Urine WBC Ur Squamous Epith Cells Urine Bacteria Hyaline Casts Urine Opiates Screen Ur Buprenorphine Scrn Ur Oxycodone Screen Urine Methadone Screen Urine Fentanyl Screen Ur Barbiturates Screen Ur Phencyclidine Scrn Ur Amphetamines Screen U Benzodiazepines Scrn Urine Cocaine Screen U Marijuana (THC) Screen Influenza Type A (PCR) Influenza Type B (PCR) RSV RNA Qual (PCR) SARS-CoV-2 RNA (RT-PCR) 11/22/23 11/22/23 11/22/23 05:22 06:03 07:11 WBC 22.3 H RBC 4.24 L Hgb 13.7 L Hct 40.3 L MCV 95.0 MCH 32.3 MCHC 34.0 RDW 13.2 Plt Count 291 MPV 9.8 Immature Gran % (Auto) 0.7 H Neut % (Auto) 81.4 H Lymph % (Auto) 10.2 L [place] % (Auto) 7.5 Eos % (Auto) 0.0 Baso % (Auto) 0.2 Lymph # (Auto) 2.3 [place] # (Auto) 1.7 H Eos # (Auto) 0.0 Baso # (Auto) 0.1 Abs Immat Gran (auto) 0.15 H Absolute Neuts (auto) 18.2 H Absolute Nucleated RBC 0.000 Nucleated RBC % (auto) 0.0 Smear Tech's Comments VERIFIED VBG pH VBG pCO2 VBG pO2 VBG HCO3 VBG O2 Saturation VBG Base Excess Sodium 144 Potassium 4.3 Chloride 110 H Carbon Dioxide 23 Anion Gap 15 BUN 31 H Creatinine 1.38 Estim Creat Clear Calc 54.6 Estimated GFR 52 POC Glucose 215 H 176 H Random Glucose 190 H Lactic Acid Lactic Acid F/U @ 2Hr Lactic Acid F/U @ 4Hr Calcium 8.8 Phosphorus 3.1 Magnesium 2.4 Total Bilirubin AST ALT Alkaline Phosphatase Troponin I High Sens Total Protein Albumin 3.8 Beta-Hydroxybutyrate Urine Color Urine Appearance Urine pH Ur Specific [place] Pool Urine Protein Urine Glucose (UA) Urine Ketones Urine Blood Urine Nitrite Ur Leukocyte Esterase Urine RBC Urine WBC Ur Squamous Epith Cells Urine Bacteria Hyaline Casts Urine Opiates Screen Ur Buprenorphine Scrn Ur Oxycodone Screen Urine Methadone Screen Urine Fentanyl Screen Ur Barbiturates Screen Ur Phencyclidine Scrn Ur Amphetamines Screen U Benzodiazepines Scrn Urine Cocaine Screen U Marijuana (THC) Screen Influenza Type A (PCR) Influenza Type B (PCR) RSV RNA Qual (PCR) SARS-CoV-2 RNA (RT-PCR) 11/22/23 11/22/23 11/22/23 08:03 09:10 10:58 WBC RBC Hgb Hct MCV MCH MCHC RDW Plt Count MPV Immature Gran % (Auto) Neut % (Auto) Lymph % (Auto) [place] % (Auto) Eos % (Auto) Baso % (Auto) Lymph # (Auto) [place] # (Auto) Eos # (Auto) Baso # (Auto) Abs Immat Gran (auto) Absolute Neuts (auto) Absolute Nucleated RBC Nucleated RBC % (auto) Smear Tech's Comments VBG pH VBG pCO2 VBG pO2 VBG HCO3 VBG O2 Saturation VBG Base Excess Sodium Potassium Chloride Carbon Dioxide Anion Gap BUN Creatinine Estim Creat Clear Calc Estimated GFR POC Glucose 168 H 144 H 172 H Random Glucose Lactic Acid Lactic Acid F/U @ 2Hr Lactic Acid F/U @ 4Hr Calcium Phosphorus Magnesium Total Bilirubin AST ALT Alkaline Phosphatase Troponin I High Sens Total Protein Albumin Beta-Hydroxybutyrate Urine Color Urine Appearance Urine pH Ur Specific [place] Pool Urine Protein Urine Glucose (UA) Urine Ketones Urine Blood Urine Nitrite Ur Leukocyte Esterase Urine RBC Urine WBC Ur Squamous Epith Cells Urine Bacteria Hyaline Casts Urine Opiates Screen Ur Buprenorphine Scrn Ur Oxycodone Screen Urine Methadone Screen Urine Fentanyl Screen Ur Barbiturates Screen Ur Phencyclidine Scrn Ur Amphetamines Screen U Benzodiazepines Scrn Urine Cocaine Screen U Marijuana (THC) Screen Influenza Type A (PCR) Influenza Type B (PCR) RSV RNA Qual (PCR) SARS-CoV-2 RNA (RT-PCR) 11/22/23 11/22/23 11:41 12:02 WBC RBC Hgb Hct MCV MCH MCHC RDW Plt Count MPV Immature Gran % (Auto) Neut % (Auto) Lymph % (Auto) [place] % (Auto) Eos % (Auto) Baso % (Auto) Lymph # (Auto) [place] # (Auto) Eos # (Auto) Baso # (Auto) Abs Immat Gran (auto) Absolute Neuts (auto) Absolute Nucleated RBC Nucleated RBC % (auto) Smear Tech's Comments VBG pH VBG pCO2 VBG pO2 VBG HCO3 VBG O2 Saturation VBG Base Excess Sodium 141 Potassium 4.1 Chloride 109 H Carbon Dioxide 22 Anion Gap 14 BUN 26 H Creatinine 1.17 Estim Creat Clear Calc 64.2 Estimated GFR > 60 POC Glucose 221 H Random Glucose 268 H Lactic Acid Lactic Acid F/U @ 2Hr Lactic Acid F/U @ 4Hr Calcium 8.8 Phosphorus Magnesium Total Bilirubin AST ALT Alkaline Phosphatase Troponin I High Sens Total Protein Albumin Beta-Hydroxybutyrate Urine Color Urine Appearance Urine pH Ur Specific [place] Pool Urine Protein Urine Glucose (UA) Urine Ketones Urine Blood Urine Nitrite Ur Leukocyte Esterase Urine RBC Urine WBC Ur Squamous Epith Cells Urine Bacteria Hyaline Casts Urine Opiates Screen Ur Buprenorphine Scrn Ur Oxycodone Screen Urine Methadone Screen Urine Fentanyl Screen Ur Barbiturates Screen Ur Phencyclidine Scrn Ur Amphetamines Screen U Benzodiazepines Scrn Urine Cocaine Screen U Marijuana (THC) Screen Influenza Type A (PCR) Influenza Type B (PCR) RSV RNA Qual (PCR) SARS-CoV-2 RNA (RT-PCR) Microbiology Microbiology Results: Microbiology 11/21/23 15:54 Blood - Venous Blood Culture - Preliminary Progress Note: A&P Assessment and plan (1) DKA (diabetic ketoacidosis): Status: Acute Plan Assessment: 68-year-old gentleman admitted with diabetic ketoacidosis initially requiring insulin drip, now titrated off. Plan: Neuro: No acute issues. Cardiac: No acute issues. Pulmonary: No acute issues. Renal: No acute issues. Endo: Diabetic ketoacidosis, appears to be secondary to insulin pump malfunction, initially requiring insulin drip, now titrated off. Continue on subcutaneous insulin. GI: No acute issues. ID: No acute issues Heme/Onc: No acute issues. Psych: No acute issues. Miscellaneous: No acute issues. Prophylaxis: Heparin Diet: Diabetic Quality Stroke Does the patient have a stroke diagnosis?: No VTE Prior VTE?: No VTE Risk Level:: Medical - moderate - high VTE Device Contraindication: N/A - Device Ordered VTE Drug Contraindication: N/A - Med Ordered
[2023-11-22 16:31] LABS: Glucose, Whole Blood 116 mg/dL (60-115)
[2023-11-22 18:29] LABS: Glucose, Whole Blood 260 mg/dL (60-115)
[2023-11-22 20:35] LABS: Glucose, Whole Blood 231 mg/dL (60-115)
[2023-11-23] MEDS: polyethylene glycoL 3350 17 GM POWD.PACK PO (01:29)
[2023-11-23 03:23] VITALS: BP 114/72; PULSE 72; RESP 19; TEMP 36.7; O2SAT 95
[2023-11-23] MEDS: Heparin Sodium,Porcine 5,000 UNIT/ML VIAL 5000 UNIT SUBCUT (04:59)
[2023-11-23 05:50] VITALS: BMI 28.4
[2023-11-23 07:11] LABS: Basophils Absolute Auto 0.1 X10*3/uL (0.0-0.2); Basophils Percent Auto 0.4 % (0-2); Eosinophils Absolute Auto 0.1 X10*3/uL (0.0-0.4); Eosinophils Percent Auto 0.9 % (0-4); Hematocrit 40.5 % (42.0-52.0); Hemoglobin 13.5 g/dl (14.0-18.0); Imm Gran Abs Auto 0.05 X10*3/uL (0.00-0.03); Imm Gran Pct Auto 0.4 % (0.0-0.4); Lymphocytes Absolute Auto 2.1 X10*3/uL (1.2-4.9); Lymphocytes Percent Auto 18.6 % (20-40); MANUAL DIFF FLAG SCAN; Mean Corpuscular HGB Conc 33.3 g/dl (31.0-36.0); Monocytes Absolute Auto 0.8 X10*3/uL (0.1-1.2); Monocytes Percent Auto 7.1 % (2-11); Neutrophils Absolute Auto 8.3 x10*3/uL (2.0-8.3); Neutrophils Percent Auto 72.6 % (45-73); PLT CLUMP 1; Red Blood Count 4.09 X10*6/uL (4.60-5.80); Red Cell Distribution Width 13.5 % (11.0-16.0); SCAN SMEAR FLAG 1
[2023-11-23 07:21] VITALS: BP 122/75; PULSE 79; RESP 20; TEMP 36.1; O2SAT 96
[2023-11-23 07:32] LABS: Glucose, Whole Blood 89 mg/dL (60-115)
[2023-11-23 07:48] LABS: Albumin Level 3.4 g/dL (3.5-5.0); Anion Gap 12 (12-20); Blood Urea Nitrogen 15 mg/dL (9-16); Calcium 8.9 mg/dL (8.4-10.2); Carbon Dioxide 24 mmol/L (22-29); Chloride 109 mmol/L (96-108); Creatinine Clr Calc Pharmacy 90.9; Estimated Glomerular Filt Rate > 60; Glucose Random 89 mg/dL (60-115); Magnesium 2.4 mg/dL (1.6-2.6); Phosphorus 2.5 mg/dL (2.7-4.5); Potassium 5.2 mmol/L (3.3-5.1); Sodium 140 mmol/L (135-145)
[2023-11-23 08:13] LABS: Mean Platelet Volume 10.5 fL (9.4-12.4)
[2023-11-23 08:14] LABS: Platelet Count 197 X10*3/uL (160-400)
[2023-11-23 08:23] LABS: White Blood Count 11.5 X10*3/uL (4.8-10.8)
[2023-11-23 08:26] LABS: SLIDE REVIEW VERIFIED
[2023-11-23] MEDS: Sodium Zirconium Cyclosilicate 10 GM POWD.PACK PO (09:33)
[2023-11-23 11:20] VITALS: BP 124/75; PULSE 69; RESP 20; TEMP 36.6; O2SAT 97
[2023-11-23 11:33] LABS: Glucose, Whole Blood 196 mg/dL (60-115)
--- NOTE | 2023-11-23 11:46 | P.DS_ITS ---
DS: Providers Provider Date of Service: 11/23/23 Date of admission: 11/21/23 19:50 Primary care physician: Triston Heller MD DS: Diagnosis Discharge Diagnosis (1) DKA (diabetic ketoacidosis): Status: Acute (2) Acute hyperkalemia: Status: Acute DS: Summary Hospital Course Hospital Course: Admission note Mr. Oliver is a 68-year-old male with past medical history of type 1 diabetes diagnosed at age 43 and hypothyroidism who presented to the ER for vomiting and hyperglycemia that began last night.? He does have an insulin pump with continuous measurement and he initially thought the pump was malfunctioning. He is followed by Dr. Madie Hicks in [place] . On arrival to the emergency room, the patient's blood pressure was 98/50, heart rate 120, temp 98.0,? O2 sat 98% on room air.? Laboratory data significant for WBC 25.8, blood glucose 801, sodium 138, potassium 5.8, chloride 95, CO2 6, anion gap 43, BUN 39, creatinine 2.64, beta- hydroxybutyrate 10.03. Initial lactic acid was 10.4.? Venous blood gas showed pH of 7.01, pCO2 25, HC03 of 8.?He received 3.5 L of crystalloids, a total of 20 units IV push insulin, Zofran 4mg,? ceftriaxone 1 g? and was started on an insulin drip. Hospital course The patient was admitted for treatment of DKA with IV fluids, IV insulin and close monitoring in ICU with good response as gap closed and he was started on diabetic diet and Lantus insulin with fair control. Contacted his diabetic specialist who prescribed him outpatient insulin for short term. the pump company also contacted him and will be delivering the new pump today. He did not want me to prescribed any Insulin for him as his DM specialist just did this morning. He will follow with as scheduled. Discharge Plan Monitor blood sugar after placing the new insulin pump Use insulin injections if any malfunction reported come back to ED if pump broke To follow with you diabetic specialist as outpatient. Time Attestation Discharge Coordination Time (in mins): 38 Quality: Safe Use of Opioids Does Pt have an Active Cancer Diagnosis on the Problem List?: No Quality: Stroke Does the patient have a stroke diagnosis?: No Physical Exam Vital Signs: Vital Signs: Last Vital Signs Temp 97.8 F 04/23/24 11:20 Pulse 69 11/23/23 11:20 Resp 20 11/23/23 11:20 BP 124/75 11/23/23 11:20 Pulse Ox 97 11/23/23 11:20 O2 Del Method Room Air 11/23/23 11:20 BMI result Body Mass Index 28.4 Const: Other: Constitutional : Awake, interactive, not in distress Neck : Normal inspection, Supple Cardiovascular : RRR, no JVP, no lower extremity edema Respiratory : good bilateral air entry, no crackles, wheezes or rhonchi Gastrointestinal: soft, lax, Normal bowel sounds, Non tender Skin : Warm, Dry Neurological : Alert & oriented x3, No focal deficit DS: Data Data Completed and Pending Labs on day of discharge: Laboratory Results - last 24 hr 11/22/23 11/22/23 11/22/23 12:02 16:27 18:24 WBC RBC Hgb Hct MCV MCH MCHC RDW Plt Count MPV Immature Gran % (Auto) Neut % (Auto) Lymph % (Auto) Schuyler % (Auto) Eos % (Auto) Baso % (Auto) Lymph # (Auto) Schuyler # (Auto) Eos # (Auto) Baso # (Auto) Abs Immat Gran (auto) Absolute Neuts (auto) Absolute Nucleated RBC Nucleated RBC % (auto) Smear Tech's Comments Sodium 141 Potassium 4.1 Chloride 109 H Carbon Dioxide 22 Anion Gap 14 BUN 26 H Creatinine 1.17 Estim Creat Clear Calc 64.2 Estimated GFR > 60 POC Glucose 116 H 260 H Random Glucose 268 H Calcium 8.8 Phosphorus Magnesium Albumin 11/22/23 11/23/23 11/23/23 20:29 06:42 07:03 WBC 11.5 H RBC 4.09 L Hgb 13.5 L Hct 40.5 L MCV 99.0 H MCH 33.0 MCHC 33.3 RDW 13.5 Plt Count 197 D MPV 10.5 Immature Gran % (Auto) 0.4 Neut % (Auto) 72.6 Lymph % (Auto) 18.6 L Schuyler % (Auto) 7.1 Eos % (Auto) 0.9 Baso % (Auto) 0.4 Lymph # (Auto) 2.1 Schuyler # (Auto) 0.8 Eos # (Auto) 0.1 Baso # (Auto) 0.1 Abs Immat Gran (auto) 0.05 H Absolute Neuts (auto) 8.3 Absolute Nucleated RBC 0.000 Nucleated RBC % (auto) 0.0 Smear Tech's Comments VERIFIED Sodium 140 Potassium 5.2 H D Chloride 109 H Carbon Dioxide 24 Anion Gap 12 BUN 15 Creatinine 0.82 Estim Creat Clear Calc 90.9 Estimated GFR > 60 POC Glucose 231 H 89 Random Glucose 89 Calcium 8.9 Phosphorus 2.5 L Magnesium 2.4 Albumin 3.4 L 11/23/23 11:23 WBC RBC Hgb Hct MCV MCH MCHC RDW Plt Count MPV Immature Gran % (Auto) Neut % (Auto) Lymph % (Auto) Schuyler % (Auto) Eos % (Auto) Baso % (Auto) Lymph # (Auto) Schuyler # (Auto) Eos # (Auto) Baso # (Auto) Abs Immat Gran (auto) Absolute Neuts (auto) Absolute Nucleated RBC Nucleated RBC % (auto) Smear Tech's Comments Sodium Potassium Chloride Carbon Dioxide Anion Gap BUN Creatinine Estim Creat Clear Calc Estimated GFR POC Glucose 196 H Random Glucose Calcium Phosphorus Magnesium Albumin Preliminary micro results at discharge 11/21/23 15:42 Blood Culture - Preliminary Blood - Venous No growth after 24 hours. 11/21/23 15:54 Blood Culture - Preliminary Blood - Venous Discharge Plan Discharge Anticipated Discharge Date/Time: 11/23/23 11:42 Patient Disposition: Home, Self-Care Discharge Diagnosis: Diabetic ketoacidosis Referrals: Triston Heller MD [Primary Care Provider] - 1 Week Discharge Medications: Continued levothyroxine 137 mcg tablet 137 mcg PO DAILY@0600 metformin 500 mg tablet extended release 24 hr 1,000 mg PO DAILY@1700 Patient Comments: with evening meal rosuvastatin 40 mg tablet 40 mg PO DAILY cholecalciferol (vitamin D3) 50 mcg (2,000 unit) capsule 50 mcg PO DAILY Jardiance 25 mg tablet 25 mg PO DAILY Fiasp U-100 Insulin 100 unit/mL solution See Rx Instructions .ROUTE .COMPLEX Rx Instructions: use a total daily dose of up to 300 units every 3 days subcutaneously via insulin pump. Discharge Orders: Discharge Order (Routine); Ordered 11/23/23 Ordered By: Roque Miller Diet: Diabetic diet Activity on Discharge: As tolerated Stand Alone Forms: Patient Portal Discharge page Print Language: Chinese Care Plan Goals: Read below Health Concerns: Read below Plan of Treatment: Read below Assessment: You were admitted for IV Insulin and IV fluids to treat diabetic ketoacidosis. you responded well to treatment and placed on short and long acting insulin while inpatient. Monitor blood sugar after placing the new insulin pump Use insulin injections if any malfunction reported come back to ED if pump broke To follow with you diabetic specialist as outpatient.
[2023-11-23] MEDS: Insulin Lispro 100 UNIT/ML 3 ML VIAL SUBCUT (12:00)
[2023-11-23] MEDS: Insulin Glargine,Hum.rec.anlog 100 UNIT/ML 10 ML VIAL 25 UNIT SUBCUT (12:00)
--- NOTE | 2023-11-23 13:19 | MHC.CM.PN ---
PT MEDICALLY CLEARED FOR DC HOME SELF-CARE, PER PT PT'S WAS ABLE TO [employer] ARCHITECT INSULIN PUMP SUPPLIES FROM [employer]ATE RESPONSIBILITY OFFICER AND NO LONGER NEEDS SCRIPTS FOR SYRINGES, PT WALKED DOWN TO LOBBY AND WILL TEXT HIS DTR FOR RIDE, PT WAS ANXIOUS TO GET OFF UNIT AND HAS BEEN SHOWN DISCHARGE LOUNGE, PT DECLINED [employer] GIFT CARD.
[2023-12-30 10:37] LABS: Glucose, Whole Blood > 600 mg/dL (60-115)
== END 2023-11-23 12:28 | disposition home or self-care (01) | DRG 919 ==
LOC: HO.ED 17:51 → HO.EDOVER 20:18 → HO.ICU 20:20 → HO.IMC 11-22 16:40
PROVIDERS: Emergency Medicine; Internal Medicine Pulmonary Disease; Physician Assistant; Admitting Provider Nurse Practitioner Family; Emergency Provider Internal Medicine; PCP Internal Medicine; Visit Provider Student in an Organized Health Care Education/Training Program
DX: T85.694A Other mechanical complication of insulin pump, initial encounter (principal); E10.10 Type 1 diabetes mellitus with ketoacidosis without coma; E03.9 Hypothyroidism, unspecified; E10.43 Type 1 diabetes mellitus with diabetic autonomic (poly)neuropathy; K31.84 Gastroparesis; Z20.822 Contact with and (suspected) exposure to COVID-19; F17.210 Nicotine dependence, cigarettes, uncomplicated; E87.5 Hyperkalemia; Z71.6 Tobacco abuse counseling; Z79.4 Long term (current) use of insulin; Z79.84 Long term (current) use of oral hypoglycemic drugs; Z79.890 Hormone replacement therapy; Z79.899 Other long term (current) drug therapy
CPT/HCPCS: 0241U; 36415; 80048; 80053; 80307; 81001; 82010; 82040; 82803; 82947; 83605; 83735; 84100; 84484; 85025; 85027; 87040; 93005; 99285; J0696; J1644; J2405; J7120

== ENCOUNTER → 2023-11-21 14:14 | Outpatient (BNV) | payer OTHER, SELFPAY | PROVIDERS: Admitting Provider Nurse Practitioner Family; Emergency Provider Internal Medicine; PCP Internal Medicine; Visit Provider Internal Medicine Cardiovascular Disease | DX: R00.0 Tachycardia, unspecified (principal) | CPT/HCPCS: 93010 ==

== ENCOUNTER → 2023-11-21 19:50 | Outpatient (BNV) | payer MEDICARE, OTHER, SELFPAY | PROVIDERS: Admitting Provider Nurse Practitioner Family; Emergency Provider Internal Medicine; PCP Internal Medicine; Visit Provider Nurse Practitioner Family | DX: E11.10 Type 2 diabetes mellitus with ketoacidosis without coma (principal) | CPT/HCPCS: 99222 ==

== ENCOUNTER → 2023-11-21 19:50 | Outpatient (BNV) | payer MEDICARE, OTHER, SELFPAY | PROVIDERS: Admitting Provider Nurse Practitioner Family; Emergency Provider Internal Medicine; PCP Internal Medicine; Visit Provider Internal Medicine Pulmonary Disease | DX: E11.10 Type 2 diabetes mellitus with ketoacidosis without coma (principal); E03.9 Hypothyroidism, unspecified | CPT/HCPCS: 99232 ==

== ENCOUNTER → 2023-11-21 19:50 | Outpatient (BNV) | payer MEDICARE, OTHER, SELFPAY | PROVIDERS: Admitting Provider Nurse Practitioner Family; Emergency Provider Internal Medicine; PCP Internal Medicine; Visit Provider Student in an Organized Health Care Education/Training Program | DX: E11.10 Type 2 diabetes mellitus with ketoacidosis without coma (principal); E87.5 Hyperkalemia | CPT/HCPCS: 99239 ==

== ENCOUNTER 2024-12-12 13:47 | Outpatient (RCR) | payer MEDICARE, OTHER, SELFPAY | END 2024-12-13 14:25 | disposition home or self-care (01) | LOC: HO.OT 13:47 | PROVIDERS: PCP Internal Medicine; Visit Provider Physician Assistant | DX: M65.4 Radial styloid tenosynovitis [de Quervain] (principal) | CPT/HCPCS: 29125; 97033; 97110; 97140; 97166; 97760 ==